=== PATIENT | male | born 1945 | race Caucasian/White ===

== ENCOUNTER 2020-12-24 11:04 | Day surgery (SDC) | payer MEDICARE, SELFPAY ==
[2018-09-26 10:07] VITALS: BMI 25.8
--- NOTE | 2020-12-04 10:31 | EKG12_ITS ---
Test Reason : PRE OP Blood Pressure : / mmHG Vent. Rate : 079 BPM Atrial Rate : 079 BPM P-R Int : 206 ms QRS Dur : 140 ms QT Int : 396 ms P-R-T Axes : 017 -39 033 degrees QTc Int : 454 ms Normal sinus rhythm Left axis deviation Right bundle branch block Abnormal ECG Confirmed by KRISTI ROSAS, PEDRITO ([id number]), newspaper managing editor JAGDISH SAHNI ([id number]) on 12/05/2020 12:24:29 PM Referred By: Loc Field Confirmed By:PEDRITO BERRY MD
[2020-12-04 12:18] LABS: Anion Gap 8 (5-15); BUN 12 mg/dL (7-18); BUN/Creat Ratio 12.8 RATIO (10-20); Chloride 107 mmol/L (98-107); Creatinine, Serum 0.93 mg/dL (0.70-1.30); EST Glomerular Filtration Rate 84 mL/min (>60); Est Glom Filt Rate - Afr Amer 102 mL/min (>60); Glucose 108 mg/dL (74-106); Potassium 3.5 mmol/L (3.5-5.1); Sodium Level 139 mmol/L (136-145)
[2020-12-24] VITALS (8 sets, daily range): BP systolic 138–169; BP diastolic 72–93; PULSE 74–85; RESP 14–16; TEMP 36.2–36.4; O2SAT 95–100; BMI 26.9
--- NOTE | 2020-12-24 | IMM_PTH ---
PATIENT: KORI ORTEGA LOC: [facility] [place] U#:[id number] AGE/SX: 75/M ROOM: RE12/24/[address]: Dr. Floyd Field MD : 1945 BED: DIS: 12/24/2020 SPEC #: [id number] RECD: 12/26/20 12:04 STATUS: ISAIAH REGabriel #: [id number] MARISELA: 12/24/20 00:[address]: Floyd Field DEPT: IMMUNOHISTOCHEMISTRY RECD BY: Tresa Monroy ENTERED: 12/26/20 12:07 SP TYPE: IMMUNO OTHR DR: Mina Ellis DO Tissues: Larynx, NOS Procedures: NAPSIN A (add) CD45 (add) CD56 (add) CK14 (add) CK20 (add) CK5-6 (add) CK7 (add) CK8 (add) KI-67 (add) P16 (add) TTF1 (add) Vimentin (add) Pankeratin (initial) P40 (add) S-100 (add) PHYSICIAN & [address] [address] SPECIMEN INFORMATION: Tissue Source: Laryngeal mass Clinical Info: Laryngeal mass Specimen Number: [id number] CPT code: 64297, 06570 x14 METHODOLOGY: Deparaffinized sections of prefer/formalin-fixed tissue or PAP/DQ stained slides are incubated with monoclonal/polyclonal antibodies/oligonucleotide probes. Localization is made via biotin free immunoperoxidase method. Appropriate controls are performed and reacted as expected. Results on target cell population are indicated in the following table: RESULTS: ANTIBODY / CLONE RESULT AE1-3 (AE1/AE3/PCK26) positive CK7 (OV-TL12/30) positive, focal, dim CK8 (02umdaO93) positive CK20 (KS20.8) negative CD45 (RP2/18) negative Vimentin (V9) negative S-100 (4C4.9) negative CD56 (123C3.D5) negative TTF-1 (8G7G3/1) negative Napsin A (Rabbit Polyclonal) negative CK5-6 (D5 & 1684) positive CK14 (LL002) positive P40 (BC28) positive P16 (E6H4) positive, block-like Ki-67 (30-9) positive, >95% These tests were developed and their performance characteristics determined by [facility]. They may not have been cleared or approved by the U.S. Food and Drug Administration. The FDA has determined that such clearance or approval is not necessary. The above immunohistochemical/dualISH markers are ordered and reviewed by the Pathologist. INTERPRETATION: Laryngeal mass, biopsy: Invasive squamous cell carcinoma. AM:shane 12/27/2020
[2020-12-24] MEDS: Lactated Ringers 1,000 ML 100 ML IV ×2 (11:15→14:00)
--- NOTE | 2020-12-24 12:50 | LARBX_PTH ---
PATIENT: KORI ORTEGA LOC: [facility] [place] U#:[id number] AGE/SX: 75/M ROOM: RE12/24/[address]: Dr. Floyd Field MD : 1945 BED: DIS: 12/24/2020 SPEC #: [id number] RECD: 12/24/20 14:27 STATUS: ISAIAH CLANCYGabriel #: [id number] MARISELA: 12/24/20 12:[address]: Floyd Field DEPT: SURGICAL PATHOLOGY RECD BY: Issac Noble ENTERED: 12/25/20 12:06 SP TYPE: LARYNX BX OTHR DR: Mnia Ellis DO Tissues: Laryngeal cavity Procedures: Surgery Specimen Level IV HEADER OPERATION: Diagnostic laryngoscopy with biopsy PRE-OP DIAGNOSIS: Laryngeal mass TISSUE SUBMITTED: Laryngeal mass MICROSCOPIC DIAGNOSIS Laryngeal mass, biopsy: Fragments of invasive squamous cell carcinoma. See comment. AM:shane 12/26/2020 COMMENT Immunohistochemistry ([id number]) supports the above diagnosis. Case has been reviewed in consultation with Dr. Zhao who concurs with the above diagnosis. IDC:MIRIAN MICROSCOPIC DESCRIPTION Slides are reviewed. GROSS DESCRIPTION Received in fixative is one container labeled with the patient's name and designated laryngeal mass. The specimen consists of multiple irregular fragments of light pollard soft tissue that in aggregate measure 1.5 x 0.8 x 0.3 cm. The specimen is totally submitted in one cassette. / MIRIAN:shane 12/25/20 TC:0 CPT: 33113
--- NOTE | 2020-12-24 13:50 | PCM.DC ---
Discharge Instructions Diet Discharge Diet: No restrictions Activity Discharge Activity: Return to Normal Activity Dressing / Incision Call your doctor if your incision/area has: Sudden Increased Bleeding Follow Up Care Please Follow Up With: Loc Field MD When: 1 week Test Results: Test results from this visit will be discussed in further detail at your follow-up appointment, if applicable. Discharge Plan Admission Attending Provider: Loc Field Primary Care Provider: Mina Ellis Discharge Orders/Prescriptions Prescriptions: No Action sulfasalazine 500 mg tablet 1,000 mg PO DAILY RF: 0 pantoprazole 20 mg tablet,delayed release (DR/EC) 40 mg PO DAILY RF: 0 aspirin 81 mg tablet,delayed release (DR/EC) 162 mg PO DAILY RF: 0 multivitamin capsule capsule 1 cap PO DAILY RF: 0 garlic 1,000 mg Capsule 1,000 mg PO DAILY RF: 0 cholecalciferol (vitamin D3) [Vitamin D3] 50 mcg (2,000 unit) Capsule 50 mcg PO DAILY RF: 0 niacin 500 mg Capsule 500 mg PO DAILY RF: 0 Disposition Discharge Orders: Discharge Patient (Routine); Ordered 12/24/20 Ordered By: Dr. Loc Field
--- NOTE | 2020-12-24 13:51 | PCM.OPRPT ---
Problems Associated Problem List Diagnoses (1) Laryngeal mass: Report of Operation Date of Procedure: 12/24/20 Pre-Operative Diagnosis: laryngeal mass Post-Operative Diagnosis: laryngeal mass Surgery/Procedure Performed:: diagnostic laryngoscopy with biopsy and use of operative telescope Type of Anesthesia: General Description of Procedure: on the day of the procedure, after appropriate informed consent was obtained, the patient was brought to the operating room and placed in supine position on the operating table. he was placed under general endotracheal anesthesia by the anesthesiologist. the endotracheal tube was secured, the eyes were taped. the table was rotated 90 degrees toward the anesthesiologist. a tommy laryngoscope was inserted with care not to damage the lips, teeth or gums. it was suspended from the corado stand. a zero degree telescope was inserted into the oral cavity and the larynx was viewed. he had a mass involving the right anterior vocal cord, anterior commissure, right supraglottis (notably right false cord) and right subglottis. the laryngeal surface of the epiglottis and right arytenoid were spared. he had no issues with laryngeal mobility bilaterally in the office. multiple biopsies were taken with a cupped biting forceps. hemostasis was achieved with afrin-soaked pledgets. he was awoken from anesthesia and transferred to the PACU in stable condition.
== END 2020-12-24 15:42 | disposition home or self-care (01) ==
LOC: SDC 11:05 → AC 11:06
PROVIDERS: PCP Preventive Medicine Occupational Medicine; Referring Provider Otolaryngology; Visit Provider Otolaryngology
PROC: 0CJS8ZZ Inspection of Larynx, Via Natural or Artificial Opening Endoscopic (ICD-10-PCS; CPT 31575; principal; 2020-12-24 12:45)
DX: C32.8 Malignant neoplasm of overlapping sites of larynx (principal); F17.210 Nicotine dependence, cigarettes, uncomplicated; K21.9 Gastro-esophageal reflux disease without esophagitis; Z79.899 Other long term (current) drug therapy
CPT/HCPCS: 31536; 36415; 80048; 88305; 88341; 88342; 93005; J7120

== ENCOUNTER → 2021-01-14 15:16 | Outpatient (CLI) | payer MEDICARE, SELFPAY ==
[2020-12-24 11:49] VITALS: BMI 26.9
--- NOTE | 2021-01-14 15:00 | PET_ITS ---
EXAMINATION: FDG PET-CT INDICATIONS: A 75-year-old male with apparent history of head and neck carcinoma presenting for initial staging examination. COMPARISON EXAMINATION: None available. INDEX LESION SIZE SUV INTERPRETATION Anterior neck, larynx 19.2 mm (frame 241) 8.3 Fulfills quantitative criteria for viable neoplasm. TECHNIQUE: Following the intravenous administration of 14.27 mCi of F-18 deoxyglucose via the left antecubital fossa, multiplanar image acquisitions of the head, neck, chest, abdomen and pelvis to level of mid-thigh, lower extremities obtained at one hour post radiopharmaceutical administration contemporaneously interpreted with the current CT of the head, neck, chest, abdomen and pelvis to level of mid-thigh, lower extremities dated 01/14/21 via coregistration and reveal: SERUM GLUCOSE LEVEL: 94 mg/dl. HEIGHT: 70 inches. WEIGHT: 185 lbs. FINDINGS: 1. Focal increased FDG concentration is observed in the anterior neck-laryngeal structures which appears to extend from the anterior commissure to the true-false vocal cord vestibular fold to the right of the midline. There is corresponding soft tissue thickening noted in the analogous location. The calculated maximum standard uptake value is 8.3. The maximum axial diameter of the corresponding metabolic, morphologic abnormality on review of CT of the neck dated 01/14/21 is 19.2 mm (AP). 2. Normal physiologic distribution of the radiopharmaceutical is apparent in the hepatic (3.0) and splenic parenchyma, both renal units, bladder and visualized intestinal tract. The visualized portion of the cerebral cortex demonstrate symmetric and preserved glucose metabolism. Diffuse intestinal tract activity is noted throughout all four quadrants of the abdominal-pelvic retroperitoneum and mesentery consistent with normal physiologic distribution of the radiopharmaceutical. Pertinent CT findings are as follows. CHEST: There is atherosclerotic calcification defined in the thoracic aorta without evidence of dilatation-aneurysm formation. Coronary arterial calcification is observed. Bilateral axillary soft tissue densities with fatty hilus are ametabolic. There are no parenchymal densities-nodules defined in the right and left hemithorax with discernable increased FDG concentration. Mediastinal soft tissue with expressed fatty hilus is ametabolic. ABDOMEN AND PELVIS: Atherosclerotic calcification is defined in the abdominal aorta without evidence of dilatation, aneurysm formation. Pelvic arterial calcification is demonstrated. Dystrophic calcification is manifest within the right peripheral zone prostate gland without evidence of increased tracer uptake. Right and left inguinal soft tissue densities with fatty hilus are nonglucose avid. SKELETAL: Degenerative changes defined in the cervical, thoracic and lumbar spine demonstrate no evidence of glucose hypermetabolism. There are no sclerotic, mixed sclerotic-lytic and/or primarily lytic changes noted in the visualized skeletal structures demonstrating quantitative significant increased FDG uptake. PET/PET/CT Tumor Base -Thigh Init IMPRESSION: 1. ABNORMAL EXAMINATION INDICATIVE OF MALIGNANT-METASTATIC VIABLE NEOPLASM. 2. Increased FDG concentration observed in the anterior neck-laryngeal structures fulfills quantitative criteria for viable neoplasm. 3. No other quantitative significant hypermetabolic abnormalities are noted. There is no definitive scintigraphic evidence of distant metastatic disease. Electronic Signature Elio Zamora D.O. Accurate Quantification of SUVs for this report are calculated using the exclusive [employer]. (U.S. Patent No. [id number] [phone]). Standardization and correction of the FDG SUV metric via [employer] technology allow for vendor non-specific objective quantitative examination comparison and optimization of the sensitivity and specificity of the FDG PET-CT examination. Electronically Signed: Elio Zamora DO at 23:17 EDT Tel , Service support ,
== END ==
PROVIDERS: PCP Preventive Medicine Occupational Medicine; Referring Provider Otolaryngology; Visit Provider Otolaryngology
DX: C32.0 Malignant neoplasm of glottis (principal)
CPT/HCPCS: 78815; A9552

== ENCOUNTER → 2021-01-22 14:48 | Outpatient (CLI) | payer MEDICARE, SELFPAY ==
[2020-12-24 11:49] VITALS: BMI 26.9
[2021-01-21 15:50] VITALS: BMI 27.6
--- NOTE | 2021-01-22 14:51 | CT_ITS ---
STUDY: CT SOFT TISSUE NECK WITH CONTRAST REASON FOR EXAM: Male, 75 years old. Eval extent of disease for laryngeal cancer RADIATION DOSAGE (If Supplied By Facility): CTDIvol = ( 18.34 ) mGy, DLP = ( 513.13 ) mGycm TECHNIQUE: The patient was scanned in a multi-detector CT scanner. High resolution transaxial imaging was performed following intravenous administration of IV 75mL Isovue-300. Sagittal and coronal images were reconstructed. Individualized dose optimization techniques were used for this CT. COMPARISON: None. FINDINGS: Normal bilateral parotid glands. Normal bilateral installer spaces. Normal bilateral parapharyngeal spaces. Normal bilateral carotid spaces. Normal bilateral sublingual and submandibular glands and spaces. Normal visualized nasopharynx. Normal retropharyngeal space. Normal perivertebral space. Normal visualized bilateral faucial tonsils. The visualized tongue, tongue base and oropharynx are normal. The visualized cervical lymph nodes (levels I-) are within normal size limits, and maintain normal morphology. There is no demonstrated solid or cystic mass lesion. There is no abnormal contrast enhancement. Normal epiglottis, bilateral vallecula and hypopharynx. The pre-epiglottic and paraglottic adipose spaces are normal. There is asymmetric thickening of the right vocal cord which may represent the patient''s known laryngeal carcinoma. This measures approximately 1 x 2 cm. Normal subglottic trachea. Normal bilateral lobes of the thyroid gland. Normal visualized pulmonary apices. Normal visualized paranasal sinuses. Normal visualized cervical spine. CT/Soft Tissue Neck WITH Contrast IMPRESSION: Asymmetric thickening of the right vocal cord which may represent the patient''s known laryngeal carcinoma. Clinical correlation is recommended. Electronically Signed: Elio Holcomb MD at 15:34 EDT Tel , Service support ,
== END ==
PROVIDERS: PCP Preventive Medicine Occupational Medicine; Referring Provider Student in an Organized Health Care Education/Training Program; Visit Provider Student in an Organized Health Care Education/Training Program
DX: C32.9 Malignant neoplasm of larynx, unspecified (principal)
CPT/HCPCS: 70491; Q9967

== ENCOUNTER 2021-02-04 10:21 | Day surgery (SDC) | payer MEDICARE, SELFPAY ==
[2021-01-24 10:10] VITALS: BMI 27.6
[2021-02-04] VITALS (7 sets, daily range): BP systolic 112–155; BP diastolic 61–90; PULSE 73–87; RESP 16–18; TEMP 36.2–36.3; O2SAT 96–98; BMI 26.4
--- NOTE | 2021-02-04 10:31 | HP.PCM_ITS ---
History and Physical Date of Admission: 02/04/21 Date of Service: 01/24/21 MR#:[id number]: KORI ORTEGARep #:[id number]:1945 Provider:Jorge L Sebastian/Sex: 75/M [facility] Vital Signs 01/24/21 10:03 01/24/21 10:10 Height 5 ft 10 in Weight: 192 lb BMI 27.5 27.6 BP 149/81 H Blood Pressure Location Rt brachial Position Sitting Respiration 18 Intake Visit Reasons: Port & Peg tube/squamus cell carcinoma larynx Chief Complaint: discuss port/peg Anesthetic Assistant Required: No Is patient in pain?: No Allergies No Known Allergies Allergy (Verified 01/24/21 10:09) Medications aspirin 81 mg tablet,delayed release 162 mg PO DAILY 09/26/18 [History Confirmed 01/24/21] multivitamin 1 cap PO DAILY 09/26/18 [History Confirmed 01/24/21] pantoprazole 20 mg tablet,delayed release 40 mg PO DAILY 09/26/18 [History Confirmed 01/24/21] sulfasalazine 500 mg tablet 1,000 mg PO DAILY 09/26/18 [History Confirmed 01/24/21] garlic 1,000 mg PO DAILY 12/18/20 [History Confirmed 01/24/21] niacin 500 mg PO DAILY 12/18/20 [History Confirmed 01/24/21] cholecalciferol (vitamin D3) 25 mcg (1,000 unit) capsule 25 mcg PO DAILY 01/20/21 [History Confirmed 01/24/21] [facility] Medical History Back pain Crohn disease Gastric reflux Hemorrhoids History of Crohn's disease History of pain when walking History of stress test Hoarseness Knee pain Neck pain Smoker Wears dentures Wears glasses Wears hearing aid Surgical History History of bowel diversion surgery History of right knee surgery Hx of colonoscopy Hx of local excision of skin lesion Hx of tonsillectomy Family History Father Myocardial infarction Mother Heart disease Social History Smoking Status: Former smoker quit date: 12/30/20 pack-years: 45 Tobacco: How many years used: 45 Electronic Cigarette Use: not used how long ago did patient quit smokin weeks ago second hand exposure: Yes quit status: quit date established alcohol intake: never HPI HPI HPI: KORI ORTEGA, is a 75 M who presents to the office today for placement of PEG and 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 Discussed with Dr. Chaudhry and Dr. Alarcon sounds like patient does clinically have an indeterminate or T3 lesion thus will be planning chemo and radiation. Patient has a history of Crohn's disease and had previous abdominal surgery in 1989 along with multiple drains for right lower quadrant abscess. ROS General General: No weight change, appetite, fatigue, colon cancer, breast cancer or weakness HEENT HEENT: No difficulty swallowing, eye injury, eye surgery, swollen glands or hoarseness Endo Endocrine: No thyroid disease, diabetes mellitus, thyroid cancer, Hair loss, heat intolerance or cold intolerance Skin Skin: No rash or changing moles Breast Breast: No left breast lump, right breast lump, nipple discharge, breast pain, abnormal mammogram, abnormal US or breast enlargement Musc Musculoskeletal: Yes back problems; No arthritis, rheumatoid arthritis, gout or joint pain Cardio Cardiovascular: No murmur, pacemaker, heart disease, atrial fibrillation, high blood pressure, heart attack, heart stent, palpitations, shortness of breat with exertion or chest pain Psych Psychiatric: No depression, anxiety or hearing voices Resp Respiratory: No shortness of breath, No sleep apnea, No cough, No COPD, No asthma, No emphysema and No wheezing Gastro Gastrointestinal: Yes abdominal pain, No nausea or vomiting, Yes diarrhea, No constipation, No blood in stool, Yes acid reflux, Yes hemorrhoids, No ulcers, No gallbladder problem and No black,tarry stools [place] Hematologic: No blood thinners, No blood disorders, No bleeding, No anemia and No blood clots Neuro Neurologic: No system reviewed and no additional complaints, except as documented, No as per HPI, No abnormal gait, No abnormal hearing, No abnormal movements, No abnormal speech, No behavioral changes, No burning sensations, No confusion, No convulsions, No disequilibrium, No dizziness, No localized weakness, No frequent falls, No headache(s), No lack of coordination, No loss of vision, No memory loss, No numbness, No other visual disturbances, No radicular pain, No restless legs, No sensory deficit, No syncope, No tingling, No tremor(s), No weakness and No other Exam Const General: cooperative, healthy appearing, comfortable and no acute distress Neck Neck: normal visual inspection and supple Chest Other: Normal palpation of bilateral upper chest. Resp Effort & Inspection: normal respiratory effort Cardio Rate: regular rate GI Inspection: non-distended Palpation: soft, no guarding and nontender Other: Well-healed midline incision, multiple small scars from drain placement Skin General: no rashes or lesions noted Neuro General: patient oriented x3 Psych Affect: normal affect COVID (Procedure Consent) Procedure Criteria Procedure Criteria: Yes Elective The surgeon/proceduralist and patient have discussed in detail the risk of exposure to and/or potential harm posed by the COVID-19 virus with having a surgery/procedure at this time versus the risk of delaying the surgery/procedure. It is not possible to know either the risk of delaying the surgery or procedure or chance of getting an infection with perfect accuracy, but a joint decision was made between the patient and the surgeon/proceduralist to proceed at this time with the scheduled surgery/procedure as indicated on the consent form. Assessment and Plan Assessment and Plan (1) Encounter for insertion of venous access port: Status: Acute (2) Squamous cell carcinoma of larynx: Status: Acute (3) History of Crohn's disease: Status: Acute Plan - Dr. Rhianna Maya MD: We will plan to place the port/PEG on 02/03 as I will be on vacation next week. If patient does need the port prior to this we may be able to check with one of my partners for placement of both sooner--d/w Dr. Alarcon. I have discussed above with the patient- Port-a-Cath placement. Right possible left Patient has been counseled as to the risks/benefits of the procedure. I have explained the risks of the surgery, including but not limited to: infection, bleeding, injury to any blood vessels/nerves, injury to lungs (such as pneumothorax or hemothorax and need for chest tube), not having any access, nonfunctioning of port due to thrombosis, infection of port, etc. the patient understands and agrees to proceed. I have answered all the patient's questions to the patient?s satisfaction and the patient has no further questions. I have discussed the above with the patient. I have offered the patient EGD with PEG placement--did discuss with patient that if I do not see a good 1-1 illumination of light from the endoscope due to his previous surgeries/drains may not be able to place the PEG endoscopically I have explained the risks/benefits of the procedure and described the procedure. I have discussed the risks with the patient, including but not limited to: infection, bleeding, perforation of the GI tract requiring emergency surgery, inability to complete the procedure, injury to any internal organs, complications of anesthesia, etc. - the patient understands and agrees to proceed. I have answered all the patient's questions to the patient's satisfaction and the patient has no further questions. Rhianna Maya M.D. Pager: [phone] [facility] [address] [place] [address], [address] [place] [address] Office: [phone] . Coding Level of Care Code Off vis,new,level 3 Diagnoses Encounter for insertion of venous access port Z45.2 Squamous cell carcinoma of larynx C32.9 History of Crohn's disease Z87.19 01/24/21 1105<Electronically signed by Rhianna Maya MD>Date Rhianna Maya MD
[2021-02-04] MEDS: Lactated Ringers 1,000 ML 100 ML IV (10:57)
--- NOTE | 2021-02-04 11:18 | SUR.PREOP ---
PEG TUBE TEACHING DONE
--- NOTE | 2021-02-04 12:05 | EX.NTREPO ---
Medical Nutrition Therapy - History Nutrition Services has been consulted to:: Manage nutrient details of diet order, Conduct nutrition education Current diet/nutrition support order:: Oral intake currently, anticipate 100% nutrition by enteral feeding as treatment progresses - Anthropometric Measurements Height:: 5 ft 10.5 in Weight:: 84.8 kg Body Mass Index (BMI):: 26.4 - Assessment Food and Nutrient Intake: Currently Regular diet without issues noted. - Nutrition Diagnosis: Intake Problem Inadequate Oral Intake Intake Problem - Etiology: anticipated and related to radiation and chemotherapy treatment Intake Problem - Signs/Symptoms: anticipated weight loss, mucositis, and dysgeusia Status: Active Problem - Nutrition Diagnosis: Clinical Problem Altered GI Function Clinical Problem - Etiology: history of Crohn's disease Clinical Problem - Signs/Symptoms: reports of diarrhea, chronic loose stools and heartburn Status: Active Problem - Protein Calorie Malnutrition Evidence of Malnutrition Exists: No - Nutrition Intervention Nutrition Prescription: 2000 - 2500 Calories, 90-130 gm Protein and 2600 mL fluids / day - Food / Nutrient Delivery Interventions Summary of nutrition intervention:: Nutrition education provided, Provide oral nutrition supplement Nutrition support ordered as / adjusted to:: Oral diet while tolerated with 2 - 8oz bottles of high protein, high calorie oral nutrition per day. Proceeding to enteral nutrition when oral diet is no longer tolerated Nutrition education provided?: Yes - [facility] Enteral Nutrition Resource Nutrition Counseling: Provided Nutrition Services contact informtion Coordination of Nutrition Care: Patient is currently following with Speech Therapy - MNT Monitoring Active Nutrition Patient: Yes Nutrition Status: Requires Follow Up 7-9 Days
[2021-02-04] MEDS: Cefazolin 2 GM in 0.9% Normal Saline 100 ML IV (12:28)
[2021-02-04] MEDS: Bupivacaine Mpf 0.5% 30 ML VIAL (12:50)
[2021-02-04] MEDS: Lidocaine 1% /Epi 1:100 (20ml) 20 ML Vial (12:50)
--- NOTE | 2021-02-04 13:20 | OP.PCM_ITS ---
Report of Operation Date of Procedure: 02/04/21 Pre-Operative Diagnosis: Squamous cell carcinoma of the larynx, Z45.2 Post-Operative Diagnosis: Same Surgery/Procedure Performed:: 1. Placement of right IJ Port-A-Cath 2. Use of fluoroscopy 3. Use of ultrasound Surgeon: Rhianna Maya Type of Anesthesia: MAC/Supplemental Anesthesiologist: Josemanuel Butterfield Special Medications: Ancef 2 g IV x1 Specimen's removed: None Estimated Blood Loss (mL): < 10 cc Description of Procedure: After informed consent was given, the patient was brought to the operating room and placed in the supine position. Appropriate time out protocol was followed. Patient was then given IV conscious sedation for anesthesia. The patient's right upper chest and neck were then prepped with a surgical skin preparation and sterile surgical drapes were placed. After proper landmarks were ascertained, the skin at the upper right chest area was then infiltrated with 1:1 mixture of 1% lidocaine with epinephrine and 0.5% marcaine. A needle trocar was then inserted into the right internal jugular vein with ultrasound guidance-multiple vessels were viewed with u/s and the right IJ was chosen-- and there was good aspiration of venous blood. A wire was then threaded into the needle trocar and this was visualized under fluoroscopy to ensure that the wire was in the superior vena cava. Once this was done, then the needle trocar was removed. A small skin shayla was made with an 11 blade knife at the wire entrance site. The dilator with the introducer sheath attached was then placed over the wire into the right internal jugular vein via the Seldinger technique and this was visualized under fluoroscopy. The dilator and sheath were in proper position as visualized by fluoroscopy. A subcutaneous pocket was then created caudad to the catheter insertion site. A transverse skin incision was made after the skin and subcutaneous tissues were infiltrated with local anesthetic. Blunt dissection was then used to create a space large enough for placement of the subcutaneous port. The catheter was then tunneled into the subcutaneous pocket. The wire and dilator were then removed. The catheter was then threaded into the introducer sheath and was positioned with its tip at the junction of the superior vena cava and the right atrium as visualized under fluoroscopy. The excess catheter was transected. The catheter was then attached to the subcutaneous port using manufacturers guidelines. The catheter was flushed with a heparin saline mixture prior to placement. Hemostasis was carefully controlled with electrocautery. The port was sutured to the subcutaneous fascia using 2-0 Vicryl suture at two sites. The port was then placed in the subcutaneous pocket. The incision were reapproximated with interrupted subdermal 3-0 vicryl sutures. The skin was reapproximated with 3-0 nylon suture in a interrupted fashion. Steristrips were used for reinforcement of the skin closure at IJ insertion site and the port was accessed. Ports on the access catheter were flushed with sali ne and heparin. A sterile opsite dressing was applied. The patient tolerated the procedure well. Implants Used: Bard PowerPort isp M.R.I. 6Fr Lot [id number] ref [id number] Grafts/Implants Used: Bard PowerPort isp M.R.I. 6Fr Lot [id number] ref [id number] Complications none
--- NOTE | 2021-02-04 13:23 | EX.PCM.DISCH ---
Discharge Instructions Procedure Port-A-Cath Diet Discharge Diet: Light diet - advance as tolerated Activity May shower in (days): 5 (Keep port site clean and dry x5 days. Neck incision okay to get wet after 1 day. Okay to lower shower and upper sponge bath. OR okay to taper off port site with a Ziploc bag to shower) Lifting Restrictions: No lifting > 15 pounds for 3 days with the arm on the side of the port Additional Activity Instructions:: Do not shower if port is accessed. Flush PEG site daily and clean skin around site okay to shower with PEG tube. Dressing / Incision Call your doctor if your incision/area has: Continuous Slow Oozing, Sudden Increased Bleeding, Increased Pain/ Swelling, Increased Redness, Foul Smelling Discharge and Swelling at the incision site Call your doctor if you observe: Fever of 101 or Higher Change Dressing in: 2 days Follow Up Care Please Follow Up With: Rhianna Maya MD When: In 10 days for permanent suture removal?call office for appointment Test Results: Test results from this visit will be discussed in further detail at your follow-up appointment, if applicable. Discharge Plan Admission Attending Provider: Rhianna Maya Primary Care Provider: Mina Ellis Discharge Orders/Prescriptions Prescriptions: New oxycodone-acetaminophen [Endocet] 5-325 mg tablet 1 tab PO Q6H PRN (Reason: pain) 3 Days Qty: 5 RF: 0 Continued sulfasalazine 500 mg tablet 1,000 mg PO DAILY RF: 0 pantoprazole 20 mg tablet,delayed release (DR/EC) 40 mg PO DAILY RF: 0 multivitamin capsule capsule 1 cap PO DAILY RF: 0 cholecalciferol (vitamin D3) 25 mcg (1,000 unit) capsule 25 mcg PO DAILY RF: 0 garlic 1,000 mg Capsule 1,000 mg PO DAILY RF: 0 niacin 500 mg Capsule 500 mg PO DAILY RF: 0 Held aspirin 81 mg tablet,delayed release (DR/EC) 162 mg PO DAILY RF: 0 Hold Instructions: Resume on 02/06/21. Referrals / Follow Up: Mina Ellis DO [Primary Care Provider] - Disposition Disposition (needs filled in before D/C Order can be placed): Home, Self Care
--- NOTE | 2021-02-04 13:29 | OP.EGD_ITS ---
Patient Name: Raman Garcia Procedure Date: 02/04/2021 12:08 PM Date of : 1945 Age: 75 Procedure: Upper GI endoscopy Indications: Malnutrition, Laryngeal cancer Providers: Rhianna Maya MD Medicines: Monitored Anesthesia Care Patient Profile: This is a 75 year old male. Complications: No immediate complications. Procedure: Pre-Anesthesia Assessment: - Prior to the procedure, a History and Physical was performed, and patient medications and allergies were reviewed. The patient's tolerance of previous anesthesia was also reviewed. The risks and benefits of the procedure and the sedation options and risks were discussed with the patient. All questions were answered, and informed consent was obtained. Prior Anticoagulants: The patient has taken aspirin, last dose was 5 days prior to procedure. ASA Grade Assessment: Per anesthesia. After reviewing the risks and benefits, the patient was deemed in satisfactory condition to undergo the procedure. After obtaining informed consent, the endoscope was passed under direct vision. Throughout the procedure, the patient's blood pressure, pulse, and oxygen saturations were monitored continuously. The gastroscope was introduced through the mouth, and advanced to the second part of duodenum. The upper GI endoscopy was accomplished without difficulty. The patient tolerated the procedure well. Scope In: 1:05:59 PM Scope Out: 1:20:34 PM Total Procedure Duration Time 0 hours 14 minutes 35 seconds Findings: The Z-line was variable and was found 40 cm from the incisors. The examined duodenum was normal. The patient was placed in the supine position for PEG placement. The stomach was insufflated to appose gastric and abdominal woodall. A site was located in the body of the stomach with excellent transillumination for placement. The abdominal wall was marked and prepped in a sterile manner. The area was anesthetized with 4 mL of 0.5% lidocaine. The trocar needle was introduced through the abdominal wall and into the stomach under direct endoscopic view. A snare was introduced through the endoscope and opened in the gastric lumen. The guide wire was passed through the trocar and into the open snare. The snare was closed around the guide wire. The endoscope and snare were removed, pulling the wire out through the mouth. A skin incision was made at the site of needle insertion. The externally removable 20 Fr Bard gastrostomy tube was lubricated. The G-tube was tied to the guide wire and pulled through the mouth and into the stomach. The trocar needle was removed, and the gastrostomy tube was pulled out from the stomach through the skin. The external bumper was attached to the gastrostomy tube, and the tube was cut to remove the guide wire. The final position of the gastrostomy tube was confirmed by relook endoscopy, and skin marking noted to be 4 cm at the external bumper. The final tension and compression of the abdominal wall by the PEG tube and external bumper were checked and revealed that the bumper was loose and lightly touching the skin. The feeding tube was capped, and the tube site cleaned and dressed. Impression: - Z-line variable, 40 cm from the incisors. - Normal examined duodenum. - An externally removable PEG placement was successfully completed. - No specimens collected. Recommendation: - Discharge patient to home. - Resume previous diet. - Continue present medications. Procedure Code(s): --- Professional --- 12497, Esophagogastroduodenoscopy, flexible, transoral; with directed placement of percutaneous gastrostomy tube Diagnosis Code(s): --- Professional --- K22.8, Other specified diseases of esophagus E46, Unspecified protein-calorie malnutrition CPT copyright 2017 [employer]. All rights reserved. The codes documented in this report are preliminary and upon cement or concrete finishing supervisor review may be revised to meet current compliance requirements. MD Rhianna Pat MD 02/04/2021 1:29:07 PM This report has been signed electronically. Number of Addenda: 0 Note Initiated On: 02/04/2021 12:08 PM
--- NOTE | 2021-02-04 13:30 | OP.CCLET_ITS ---
02/04/2021 Mina Ellis Do Re : Upper GI endoscopy procedure for Raman Garcia Dear Rhonda This procedure was performed on Thursday, February 04, 2021. My impressions and recommendations are as follows: Impressions : - Z-line variable, 40 cm from the incisors. - Normal examined duodenum. - An externally removable PEG placement was successfully completed. - No specimens collected. Recommendations : - Discharge patient to home. - Resume previous diet. - Continue present medications. My findings are described in the full procedure note, which is enclosed. If I can be of further assistance, please feel free to contact me at Doctor phone number(s): , Work: . Sincerely, MD Rhianna Pat MD 02/04/2021 1:29:07 PM This report has been signed electronically.
--- NOTE | 2021-02-04 13:40 | RAD_ITS ---
STUDY: X-RAY CHEST REASON FOR EXAM: Male, 75 years old. Port -- pacu TECHNIQUE: Single AP portable view of the chest. COMPARISON: None. FINDINGS: A right-sided portacatheter has been placed with the tip at the junction of the superior vena cava and right atrium. Hyperinflation. The lungs are clear. There is no demonstrated pleural abnormality. Normal size heart. Normal mediastinum and calixto. Normal visualized pulmonary arteries. Normal visualized aortic arch and descending thoracic aorta. There are diffuse degenerative changes of the visualized thoracic spine. Normal visualized ribs, clavicles, and shoulders. There is no demonstrated abnormality of the visualized soft tissue structures of the upper abdomen. RAD/CXR for Line Placement IMPRESSION: Hyperinflation. The lungs are clear. Electronically Signed: Cyrus Pretty MD at 14:10 EDT , Service support ,
== END 2021-02-04 14:39 | disposition home or self-care (01) ==
LOC: SDC 10:24 → AC 10:24
PROVIDERS: PCP Preventive Medicine Occupational Medicine; Referring Provider Surgery; Visit Provider Surgery
PROC: (CPT 36561; principal; 2021-02-04 11:45)
PROC: 0DJ08ZZ Inspection of Upper Intestinal Tract, Via Natural or Artificial Opening Endoscopic (ICD-10-PCS; CPT 43235; principal; 2021-02-04 11:55)
DX: Z45.2 Encounter for adjustment and management of vascular access device (principal); C32.9 Malignant neoplasm of larynx, unspecified; K22.8 Other specified diseases of esophagus; E46 Unspecified protein-calorie malnutrition; K50.90 Crohn's disease, unspecified, without complications; M19.90 Unspecified osteoarthritis, unspecified site; K21.9 Gastro-esophageal reflux disease without esophagitis; Z79.82 Long term (current) use of aspirin; Z79.899 Other long term (current) drug therapy; Z87.891 Personal history of nicotine dependence
CPT/HCPCS: 36561; 43246; 71045; 77001; J7120; J2405

== ENCOUNTER → 2021-02-18 11:51 | Outpatient (CLI) | payer MEDICARE, SELFPAY ==
--- NOTE | 2021-02-18 12:30 | ST.MBS ---
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 Past Medical History: Back pain; Crohn disease; Gastric reflux; Hemorrhoids; History of Crohn's disease; History of pain when walking; History of stress test; Hoarseness; Knee pain; Neck pain; Smoker; Wears dentures; Wears glasses; Wears hearing aid. Past Surgical History: History of bowel diversion surgery; History of right knee surgery; Hx of colonoscopy; Hx of local excision of skin lesion; Hx of tonsillectomy. Mental Status: WNL Comment: MOAPA, require repetition and reinforcement of education and instructions provided Respiratory Status: Oxygenating on Room Air - Penetration-Aspiration Scale Penetration-Aspiration Scale: OBJECTIVE ASSESSMENT OF SWALLOW FUNCTION (QUANTITATIVE ? PER TRIAL): PENETRATION / ASPIRATION SCALE (ZAMORA): 1 = does not enter airway 2 = enters airway/above vocal folds/ejected 3 = enters airway/above vocal folds/not ejected 4 = enters airway/contacts vocal folds/ejected 5 = enters airway/contacts vocal folds/not ejected 6 = enters airway/below vocal folds/ejected 7 = enters airway/below vocal folds/not ejected despite effort 8 = enters airway/below vocal folds/no effort VIDEOFLOROSCOPIC SCALE SCORE (ZAMORA): Grade I = aspiration of material that has penetrated into the laryngeal vestibule, intact cough reflex Grade II = aspiration < 10 % of the bolus, intact cough reflex Grade III = aspiration of < 10 % of the bolus, reduced cough reflex or aspiration of > 10 % of the bolus, intact cough reflex Grade IV = aspiration of > 10 % of the bolus, reduced cough reflex - Penetration-Aspiration Scale Score Thin Liquid via teaspoon Result: 1= does not enter airway Thin Liquid via teaspoon Trial 2 Result: 1= does not enter airway Thin Liquid via small single sip from cup Result: 1= does not enter airway Thin Liquid via sequential sips from cup Result: 7= enters airways/below vocal folds/not ejected despite effort Comment: Grade III = aspiration of < 10 % of the bolus, reduced cough reflex Thin Liquid via small single sip from cup Trial 2 Result: 1= does not enter airway Thin Liquid via single sip from straw Result: 1= does not enter airway [place] Thick Liquid via small single sip from cup Result: 1= does not enter airway Honey Thick Liquid via small single sip from cup Result: 1= does not enter airway Pudding Result: 1= does not enter airway Pudding + esophageal clearance screening Result: 1= does not enter airway Cookie Result: 1= does not enter airway Thin Liquid via small single sip from cup Trial 3 Result: 1= does not enter airway - Oral Phase Labial Seal: No Labial Escape Tongue Control During Bolus Hold: Cohesive bolus between tongue to palatal seal Bolus Preparation/Mastication: Slow prolonged chewing/mashing with complete recollection Bolus Transport/Lingual Motion: Repetitive/disorganized tongue motion Oral Residue: Residue collection on oral structures - Pharyngeal Phase Initiation of Pharyngeal Swallow: Bolus head at posterior angle of ramus at first hyoid excursion Soft Palate Elevation: No bolus between soft palate and pharyngeal wall Laryngeal Elevation: Partial superior movement thyroid cart/partial apprx aryt-epig petiole Anterior Hyoid Excursion: Partial anterior movement Epiglottic Movement: Complete inversion Laryngeal Vestibule Closure at Height of Swallow: Complete; no air/contrast in laryngeal vestibule Pharyngeal Stripping Wave: Present - diminished Pharyngoesophageal Segment Opening: Complete distension and complete duration; no obstruction of flow Tongue Base Retraction: Narrow column of contrast between tongue base & post. pharyngeal wall Pharyngeal Residue: Collection of residue within or on pharyngeal structures - Esophageal Phase Esophageal Clearance: Esophageal retention - Treatment Strategies Effects of treatment strategies attemped:: reduction in liquid bolus volume = effective to reduce penetration/aspiration risk double swallow = effective to clear oral/pharyngeal residue and reduce risk of post prandial penetration/subsequent risk of aspiration of pyriform stasis - Diagnosis/Impression Diagnosis: mild oropharyngeal dysphagia Impression: Swallow function is marked by: prolonged and disorganized mastication and A-P bolus transportation loss of oral bolus control w/ recollection required multiple repetitive lingual sweeps to clear solid texture bolus from the oral cavity adequate prandial laryngeal vestibule closure , no prandial penetration residue retention of the oral tongue and pharyngeal tongue evident post deglutition, requiring 1-2 additional swallows to clear pyriform residue retention resulted in post-prandial spilling of thin liquid from pyriforms into the laryngeal vestibule w/ subsequent aspiration entering along the posterior tracheal wall 1x following sequential intake of thin liquid via cup patient demonstrated weak cough response to penetration/aspiration which was not effective to expel aspirate from the trachea decreased base of tongue retraction w/ resultant residue retention inconsistent pharyngeal contraction w/ diminished stripping wave resulting in a collection of contrast lining the valleculae, aryepiglottic folds and pyriform sinuses post deglutition liquid wash/effortful double swallow were effective to partially clear residue esophageal retention visible during screening of esophageal clearance - Recommendations Diet: Regular Textures, Thin Liquids Compensatory Strategies: Small Bites, Small Sips, Slow Rate, Multiple Swallows - at reasonable intervals as needed to clear pharyngeal residue, Alternate bites/solids and sips/liquids, Sitting upright, Remain sitting upright for 30 minutes after PO intake Recommend Repeat Modified Barium Swallow: Yes - 1-3 months after radiation completed Need for Skilled Speech Therapy Services: Yes Comment: Skilled dysphagia intervention is recommended 1x/week throughout duration of laryngeal cancer treatment to address oropharyngeal dysphagia w/ continuation of the proactive swallow exercise program and ongoing education re: acute and post treatment dysphagia secondary to laryngeal cancer treatment w/ radiation/chemotherapy. Education Completed: 1. Described result of evaluation., 2. Pt understands evaluation & agrees with goals and treatment plan., 4. Family/caregivers understand evaluation & agree w/ goals & tx plan. Comment: Images were reviewed w/ the patient and his , Yamilet, following [facility] [place]. Extended time spent providing education re: anatomy/physiology of swallow function, deficits identified, and plan of care for ongoing dysphagia intervention during treatment of laryngeal cancer w/ radiation and chemo therapies. Education was well received. - Status Active ST Patient: Active - Contact Information [facility]:: Dalila Campbell M.A., [facility] [employer] [facility] [address] [place] [address] x [phone] [email or web address] 02/18/21 13:21
== END ==
PROVIDERS: PCP Preventive Medicine Occupational Medicine; Referring Provider Student in an Organized Health Care Education/Training Program; Visit Provider Student in an Organized Health Care Education/Training Program
DX: Z51.0 Encounter for antineoplastic radiation therapy (principal); C32.9 Malignant neoplasm of larynx, unspecified
CPT/HCPCS: 74230; 77386; 92611

== ENCOUNTER 2021-07-24 07:16 | Outpatient (CLI) | payer MEDICARE, SELFPAY ==
--- NOTE | 2021-07-24 07:18 | MRI_ITS ---
STUDY: MRI RIGHT HIP WITH AND WITHOUT CONTRAST REASON FOR EXAM: Lesion in the proximal right femur, abnormal PET scan. TECHNIQUE: Standardized fat and water weighted pulse sequences were obtained in all 3 orthogonal planes before and after intravenous administration of 15 mL of Dotarem. COMPARISON: CT images from lesion biopsy. FINDINGS: There is mild right hip arthrosis with mild chondral thinning (proton-density sagittal image 18) and a very small subchondral cyst of the anterior acetabulum. Normal labrum. Normal femoral head. There is a well-defined lesion in the intertrochanteric right femur measuring 2.5 cm in length with sclerotic margins. The lesion demonstrates mildly increased T2 signal (T2 axial images 18-20) and a focus of fat at the superior aspect of the lesion (T1 coronal image 18). There is mild contrast enhancement of the lesion (postcontrast T1 axial images 18-20). On the CT images there is a groundglass appearance of the lesion, therefore fibrous dysplasia is a leading differential consideration. There is no bone edema adjacent to the lesion aside from the biopsy tract. There is no endosteal scalloping. Normal gluteus minimus, medius and iliopsoas tendons and distal insertions. There is no trochanteric, iliopsoas or iliopectineal bursitis. Normal superior and inferior pubic rami. Normal pubic symphysis. Normal ischial tuberosity. Normal origin of the hamstring tendons. Normal visualized iliac wing, sacroiliac joint, and sacral ala. Normal visualized soft tissue structures of the pelvis. MRI/Lower Ext Joint Only W/WO Cont IMPRESSION: Well-defined lesion in the right intratrochanteric hip with nonaggressive features including a focus of fat, fibrous dysplasia is a leading differential consideration. Mild right hip arthrosis. Electronically Signed: Casimiro Aguirre MD at 9:59 EST ,
[2021-07-24] MEDS: 0.9% Saline Lock 10 ML Syringe IV (08:33)
== END 2021-07-24 23:59 | disposition home or self-care (01) ==
PROVIDERS: PCP Preventive Medicine Occupational Medicine; Referring Provider Internal Medicine Hematology & Oncology; Visit Provider Internal Medicine Hematology & Oncology
DX: M89.9 Disorder of bone, unspecified (principal); M16.11 Unilateral primary osteoarthritis, right hip
CPT/HCPCS: 73723; A9575; A4216

== ENCOUNTER 2021-07-25 12:56 | Outpatient (CLI) | payer MEDICARE, SELFPAY ==
--- NOTE | 2021-07-25 14:00 | SP.MBSS_ITS ---
Modified Barium Swallow - Patient Information Study Date: 07/25/21 Study Time: 13:00 Direct Billable Minutes: 105 Total Minutes procedure & reportin Diagnosis: 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 Past Medical History: Back pain; Crohn disease; Gastric reflux; Hemorrhoids; History of Crohn's disease; History of pain when walking; History of stress test; Hoarseness; Knee pain; Neck pain; Smoker; Wears dentures; Wears glasses; Wears hearing aid. Past Surgical History: History of bowel diversion surgery; History of right knee surgery; Hx of colonoscopy; Hx of local excision of skin lesion; Hx of tonsillectomy. The patient underwent definitive chemoradiation therapy from 02/05/2021 ? 03/21/2021. He participated in outpatient speech therapy from 01/29/2021-05/26/2021 for ongoing assessment of swallow function during chemoradiation treatment, implementation of oropharyngeal exercise program, and education re: safe swallow strategies to decrease aspiration risk. MBS study 02/18/2021 recommendations: Regular Textures, Thin Liquids, Compensatory Strategies: Small Bites, Small Sips, Slow Rate, Multiple Swallows - at reasonable intervals as needed to clear pharyngeal residue, Alternate bites/solids and sips/liquids, Sitting upright, Remain sitting upright for 30 minutes after PO intake. Referred for repeat MBS study to further assess current dysphagia and aspiration risk s/p radiation. Patient reports continued xerostomia and dysgeusia at this time, although improved in the past few months. Current Diet Ordered: Regular Textures / Thin Liquids Mental Status: WNL Respiratory Status: Oxygenating on Room Air - Penetration-Aspiration Scale Penetration-Aspiration Scale: OBJECTIVE ASSESSMENT OF SWALLOW FUNCTION (QUANTITATIVE ? PER TRIAL): PENETRATION / ASPIRATION SCALE (ZAMORA): 1 = does not enter airway 2 = enters airway/above vocal folds/ejected 3 = enters airway/above vocal folds/not ejected 4 = enters airway/contacts vocal folds/ejected 5 = enters airway/contacts vocal folds/not ejected 6 = enters airway/below vocal folds/ejected 7 = enters airway/below vocal folds/not ejected despite effort 8 = enters airway/below vocal folds/no effort VIDEOFLOROSCOPIC SCALE SCORE (ZAMORA): Grade I = aspiration of material that has penetrated into the laryngeal vestibule, intact cough reflex Grade II = aspiration < 10 % of the bolus, intact cough reflex Grade III = aspiration of < 10 % of the bolus, reduced cough reflex or aspiration of > 10 % of the bolus, intact cough reflex Grade IV = aspiration of > 10 % of the bolus, reduced cough reflex - Penetration-Aspiration Scale Score Thin Liquid via teaspoon Result: 2= enter airway/above vocal folds/ejected Thin Liquid via teaspoon Trial 2 Result: 3= enters airways/above vocal folds/not ejected Thin Liquid via small single sip from cup Result: 1= does not enter airway Thin Liquid via sequential sips from cup Result: 3= enters airways/above vocal folds/not ejected [place] Thick Liquid via small single sip from cup Result: 1= does not enter airway Comment: Cued cough and reswallow to clear residue in laryngeal vestibule from thin liquids sequential cup trial. Somewhat effective. Honey Thick Liquid via small single sip from cup Result: 1= does not enter airway Pudding Result: 1= does not enter airway Cookie Result: 1= does not enter airway Thin Liquid via single sip from straw Result: 2= enter airway/above vocal folds/ejected Thin Liquid via sequential sips from straw Result: 3= enters airways/above vocal folds/not ejected Comment: Cued cough and reswallow to clear residue in laryngeal vestibule. Somewhat effective. Thin Liquid via small single sip from cup Effortful swallow Result: 1= does not enter airway Thin Liquid via small single sip from cup Effortful swallow Trial 2 Result: 2= enter airway/above vocal folds/ejected Thin Liquid via small single sip from cup [place] t[place] Result: 2= enter airway/above vocal folds/ejected Thin Liquid via teaspoon Effortful swallow Result: 2= enter airway/above vocal folds/ejected - Oral Phase Labial Seal: No Labial Escape Tongue Control During Bolus Hold: Posterior escape of less than half of bolus Bolus Preparation/Mastication: Slow prolonged chewing/mashing with complete recollection Bolus Transport/Lingual Motion: Repetitive/disorganized tongue motion Oral Residue: Residue collection on oral structures - Piecemeal deglutition of cookie. - Pharyngeal Phase Initiation of Pharyngeal Swallow: Bolus head at posterior laryngeal surgace of epiglottis Soft Palate Elevation: Trace column of contrast/air between soft palate and pharyngeal wall Laryngeal Elevation: Partial superior movement thyroid cart/partial apprx aryt-epig petiole Anterior Hyoid Excursion: Partial anterior movement Epiglottic Movement: Partial inversion Laryngeal Vestibule Closure at Height of Swallow: Incomplete; narrow column of air/contrast in laryngeal vestibule Pharyngeal Stripping Wave: Present - diminished Pharyngoesophageal Segment Opening: Parital distension and partial duration; parital obstruction of flow Tongue Base Retraction: No contrast between tongue base and posterior pharyngeal wall Pharyngeal Residue: Collection of residue within or on pharyngeal structures - Esophageal Phase Esophageal Clearance: Esophageal retention - Mild retention of pudding bolus in mid esophagus. - Treatment Strategies Effects of treatment strategies attemped:: Decreased bolus rate = Effective. Cough and reswallow = Somewhat effective. Chin tuck = Not effective. Effortful swallow = No significant impact observed. - Diagnosis/Impression Diagnosis: Mild oropharyngeal phase dysphagia (R13.12) Impression: The oral phase is primarily marked by decreased A-P transport with lingual pumping observed to transport cookie bolus posteriorly. The patient presented with piecemeal deglutition of cookie bolus. He had mild oral residue after the swallow. The pharyngeal phase is primarily marked by decreased airway closure due to decreased laryngeal elevation and anterior hyoid excursion. He also presented with laryngeal penetration of various thin liquid trials, most of which ejected fully from the laryngeal vestibule; however, sequential sips and sips by tsp did not fully eject from the airway. The patient had mild pharyngeal residue in the vallecula of cookie. No aspiration observed during the study. The patient had mild esophageal retention in the mid esophagus. - Recommendations Diet: Regular Textures, Thin Liquids Compensatory Strategies: Small Bites, Small Sips, Slow Rate - Sips one at a time, Multiple Swallows, Sitting upright, Remain sitting upright for 30 minutes after PO intake Recommend Repeat Modified Barium Swallow: Yes - Recommend follow up MBS study in 3-6 months. Need for Skilled Speech Therapy Services: Yes Comment: Will recommend the patient for continued outpatient dysphagia therapy to address deficits in oropharyngeal swallow function. Would consider the patient for oropharyngeal strengthening to improve lingual coordination, laryngeal elevation, hyoid excursion, and duration of UES opening. Consider Effortful swallow, effortful breath hold and swallow, Thomas, and lingual strength/coordination exercises. The patient would benefit from thorough education regarding diet recommendations, recommended compensatory strategies, and negative exterminator impacts of radiation on swallow function. Would consider the patient for implementation of myofascial release in junction with oropharyngeal strengthening. Education Completed: 1. Described result of evaluation., 7. Pt requires further education on strategies & risks. - Status Active ST Patient: Active - Contact Information [facility] Speech Therapy:: Renetta Higgins M.A. CCC-SCCM ADMINISTRATOR Speech-Language Pathologist [facility] [address] [place] [address] [email or web address] [phone] 07/25/21 16:13
== END 2021-07-25 23:59 | disposition home or self-care (01) ==
LOC: RAD 12:57
PROVIDERS: PCP Preventive Medicine Occupational Medicine; Referring Provider Student in an Organized Health Care Education/Training Program; Visit Provider Student in an Organized Health Care Education/Training Program
DX: C32.9 Malignant neoplasm of larynx, unspecified (principal)
CPT/HCPCS: 74230; 92611

== ENCOUNTER 2021-09-08 09:30 | Outpatient (RCR) | payer MEDICARE, SELFPAY ==
[2021-01-21 15:50] VITALS: BMI 27.6
[2021-01-24 10:10] VITALS: BMI 27.6
--- NOTE | 2021-01-29 16:46 | HP.SP.AD_ITS ---
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 Past Medical History: Back pain; Crohn disease; Gastric reflux; Hemorrhoids; History of Crohn's disease; History of pain when walking; History of stress test; Hoarseness; Knee pain; Neck pain; Smoker; Wears dentures; Wears glasses; Wears hearing aid. Past Surgical History: History of bowel diversion surgery; History of right knee surgery; Hx of colonoscopy; Hx of local excision of skin lesion; Hx of tonsillectomy. History of Present Illness -. December 2020: Patient presented to ENT with a several month history of increasing hoarseness. On exam there was concern for a right laryngeal lesion and patient was taken for direct laryngoscopy with biopsies. On exam there appeared to be no issues with laryngeal mobility bilaterally. 01/03/2021: Patient completed direct laryngoscopy with biopsy. On examination there is evidence for a mass involving the right anterior vocal cord, anterior commissure, right supraglottis (notably right false cord), and right subglottis. The right arytenoid and laryngeal surface of the epiglottis were spared. Pathology demonstrated fragments of invasive squamous cell carcinoma. 01/14/2021: PET scan was performed. This demonstrated focal increased FDG concentration observed in the anterior neck laryngeal structures which appears to extend from the anterior commissure to the true/false vocal cord vestibular fold on the right of midline. There is corresponding soft tissue thickening noted in the analogous location with a calculated maximum SUV of 8.3 and a lesion measuring 1.9 cm. No other FDG avid lesions are appreciated. 01/15/2021: Patient was evaluated by ENT. On exam the right vocal cord was somewhat reddish in appearance and there is an underlying mass of that cord and extending into the subglottic area. The vocal cord mobility is difficult to appreciate but there seems to be some movement, airway is adequate. No other lesions are identified on exam. It is felt that his only surgical option would be a total laryngectomy given the location of his tumor and the patient desired to proceed with laryngeal preservation. Patient is scheduled to have PEG tube placed and initiate chemo/radiation next week. Smoking Status: Former smoker Hx Smoking: Yes - quit ~1 month prior to this evaluation Years Smokin Hx Tobacco Use: Yes - Pain Is pain an issue with your current prescribed condition?: No - Personal Right Hearing Abillity: Use of Hearing Aid Left Hearing Abillity: Use of Hearing Aid Visual Assistive Devices: Glasses Patients Living Arrangements: With Significant Other Patient Allergies - Allergies Allergies No Known Allergies Allergy (Verified 01/24/21 10:09) Objective Dysphagia - Administered by Administered by: Self - Thin Liquids Administred via: Cup, Straw Comments: audible swallow w/ suspected oropharyngeal residue retention requiring 2-3 swallows per bolus; difficult to discern vocal quality change w/ liquid intake d/t baseline hoarse vocal quality d/t VF lesion; increased risk for aspiration d/t known impairment in VF adduction - Pureed Comments: large bite size and rapid rate of intake noted; sufficient oral clearance; 1-2 swallows per bolus - Regular Symptoms: Throat Clearing, Couging Comments: large bite size utilized w/ anterior bolus loss; poor safety awareness w/ patient taking additional bites prior to clearing oral cavity of previous bites taken w/ cough/throat clearing 1x; diffuse residue spread t/o oral cavity post deglutition; required liquid mash to clear majority of residue - Results Swallowing Within Normal Limits: No Swallowing Diagnosis: Oropharyngeal Phase Dysphagia Severity: Moderate Dysphagia Assessment - Swallowing Impairment Contributing Factors to Swallowing Impairment: Reduced Oral Stre ngth/Coordination/Sensation, Mastication Inefficiency, Other Other: large bolus size, rapid rate of intake, reduced safety awarenessd - Impact Impact on Safety & Functioning: Risk for Aspiration - Recommendations Modified Barium Swallow/Cookie Swallow Recommended: Yes Swallowing Treatment: Yes - Diet Texture Recommendations Solids Other: Regular Liquids: Thin - Safety Saftey Precautions/Swallowing Recommendations (Check all that Apply): Upright Position at Least 30 Minutes After Meals, Small Sips & Bites when Eating, Alternate Liquids & Solids SP Oncology PSS-HN - PSS-HN Test Normalcy of Diet: Full diet Scale Result:: 100 Public Eating: No restrictions of place, food or companions-eats out any opportunity Public eating scale: 100 Understandability of Speech: Understandable most of the time; occasional repetition necessary. Understandability of Speech Scale: 75 Other Impressions - Comments Cranial Nerve Examination -: TRIGEMINAL NERVE (V) ? no clinical abnormalities observed. FACIAL NERVE (VII) ? impaired; L labial weakness w/ reduced labial ROM. VAGUS NERVE (X) ? impaired; slight asymmetry of palatoglossal arch w/ deviation to the right; diminished sensory response to palate/posterior tongue. HYPOGLOSSAL NERVE (XII) ? 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 Additionally, will provide ongoing assessment of diet tolerance during and post radiation treatment. Without skilled ST services, the patient is at risk for aspiration, weight loss, and malnutrition. - Recommendations MBS: Yes Treatment Warranted: Yes - Frequency Frequency: 1x/Week - Prognosis Prognosis: Good - Goals that are Established: Determination:: Goals will be added/modified as deemed necessary and appropriate. Therapy will be discontinued when results of re-evaluation indicate therapy is no longer needed or lack of progress has been documented. - Goal #1-5 Goal #1: The patient will consume least restrictive diet textures without overt s/s of aspiration with 90% accuracy with minimal verbal cues for use of compensatory strategies to decrease risk for aspiration. Goal #2: The patient will complete an oropharyngeal exercise program during and post radiation treatment X10 repetitions, 3-5X daily independently to improve and maintain strength, ROM, and coordination of swallowing mechanism. Goal #3: The patient will participate in MBS study to objectively assess swallow function and provide recommendations for safest, least restrictive diet and compensatory strategies to reduce risk for aspiration. Education - Patient has Indicated that the Following Identified Educational Needs: None The Patient has indicated that they have no educational or learning abilities that may effect their care.: Yes - Patient Instruction Patient Education: Diagnosis, Treatment Plan, Goals, Safety Precautions, Diet Level, Home Exercise Program Other Education: Education provided regarding the potential impacts of radiation treatment on swallow function during and post treatment, including effects such as mucositis, dysgeusia, radiation fibrosis, and disuse atrophy which may result in restricted range of motion and weakness of swallowing mechanism. Discussed im paired swallowing and increased risk for aspiration, aspiration related illnesses, weight loss, and malnutrition. Discussed importance for speech therapy to monitor and address dysphagia both pre, during, and post radiation treatment to maintain optimal swallow function through continued education and prophylactic exercise program. Provided the patient a handout and demonstration of prophylactic oropharyngeal exercise program, as well as jaw ROM exercises. The patient provided return demonstration with all exercises with minimal verbal cues and demonstration. The patient would benefit from continued training to monitor proper execution of exercises and encourage strict adherence to exercise program. Person Taught: Patient, Significant Other Teaching Method: Discussion, Demonstration Response to teaching: Return demonstration, Verbalize understanding
--- NOTE | 2021-07-28 09:10 | ST ---
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 Past Medical History: Back pain; Crohn disease; Gastric reflux; Hemorrhoids; History of Crohn's disease; History of pain when walking; History of stress test; Hoarseness; Knee pain; Neck pain; Smoker; Wears dentures; Wears glasses; Wears hearing aid. Past Surgical History: History of bowel diversion surgery; History of right knee surgery; Hx of colonoscopy; Hx of local excision of skin lesion; Hx of tonsillectomy. The patient underwent definitive chemoradiation therapy from 02/05/2021 ? 03/21/2021. He participated in outpatient speech therapy from 01/29/2021-05/26/2021 for ongoing assessment of swallow function during chemoradiation treatment, implementation of oropharyngeal exercise program, and education re: safe swallow strategies to decrease aspiration risk. MBS study 02/18/2021 recommendations: Regular Textures, Thin Liquids, Compensatory Strategies: Small Bites, Small Sips, Slow Rate, Multiple Swallows - at reasonable intervals as needed to clear pharyngeal residue, Alternate bites/solids and sips/liquids, Sitting upright, Remain sitting upright for 30 minutes after PO intake. Referred for repeat MBS study to further assess current dysphagia and aspiration risk s/p radiation. Patient reports continued xerostomia and dysgeusia at this time, although improved in the past few months. Current Diet Ordered: Regular Textures / Thin Liquids Mental Status: WNL Respiratory Status: Oxygenating on Room Air - Penetration-Aspiration Scale Penetration-Aspiration Scale: OBJECTIVE ASSESSMENT OF SWALLOW FUNCTION (QUANTITATIVE ? PER TRIAL): PENETRATION / ASPIRATION SCALE (ZAMORA): 1 = does not enter airway 2 = enters airway/above vocal folds/ejected 3 = enters airway/above vocal folds/not ejected 4 = enters airway/contacts vocal folds/ejected 5 = enters airway/contacts vocal folds/not ejected 6 = enters airway/below vocal folds/ejected 7 = enters airway/below vocal folds/not ejected despite effort 8 = enters airway/below vocal folds/no effort VIDEOFLOROSCOPIC SCALE SCORE (ZAMORA): Grade I = aspiration of material that has penetrated into the laryngeal vestibule, intact cough reflex Grade II = aspiration < 10 % of the bolus, intact cough reflex Grade III = aspiration of < 10 % of the bolus, reduced cough reflex or aspiration of > 10 % of the bolus, intact cough reflex Grade IV = aspiration of > 10 % of the bolus, reduced cough reflex - Penetration-Aspiration Scale Score Thin Liquid via teaspoon Result: 2= enter airway/above vocal folds/ejected Thin Liquid via teaspoon Trial 2 Result: 3= enters airways/above vocal folds/not ejected Thin Liquid via small single sip from cup Result: 1= does not enter airway Thin Liquid via sequential sips from cup Result: 3= enters airways/above vocal folds/not ejected [place] Thick Liquid via small single sip from cup Result: 1= does not enter airway Comment: Cued cough and reswallow to clear residue in laryngeal vestibule from thin liquids sequential cup trial. Somewhat effective. Honey Thick Liquid via small single sip from cup Result: 1= does not enter airway Pudding Result: 1= does not enter airway Cookie Result: 1= does not enter airway Thin Liquid via single sip from straw Result: 2= enter airway/above vocal folds/ejected Thin Liquid via sequential sips from straw Result: 3= enters airways/above vocal folds/not ejected Comment: Cued cough and reswallow to clear residue in laryngeal vestibule. Somewhat effective. Thin Liquid via small single sip from cup Effortful swallow Result: 1= does not enter airway Thin Liquid via small single sip from cup Effortful swallow Trial 2 Result: 2= enter airway/above vocal folds/ejected Thin Liquid via small single sip from cup Chin tuck Result: 2= enter airway/above vocal folds/ejected Thin Liquid via teaspoon Effortful swallow Result: 2= enter airway/above vocal folds/ejected - Oral Phase Labial Seal: No Labial Escape Tongue Control During Bolus Hold: Posterior escape of less than half of bolus Bolus Preparation/Mastication: Slow prolonged chewing/mashing with complete recollection Bolus Transport/Lingual Motion: Repetitive/disorganized tongue motion Oral Residue: Residue collection on oral structures - Piecemeal deglutition of cookie. - Pharyngeal Phase Initiation of Pharyngeal Swallow: Bolus head at posterior laryngeal surgace of epiglottis Soft Palate Elevation: Trace column of contrast/air between soft palate and pharyngeal wall Laryngeal Elevation: Partial superior movement thyroid cart/partial apprx aryt-epig petiole Anterior Hyoid Excursion: Partial anterior movement Epiglottic Movement: Partial inversion Laryngeal Vestibule Closure at Height of Swallow: Incomplete; narrow column of air/contrast in laryngeal vestibule Pharyngeal Stripping Wave: Present - diminished Pharyngoesophageal Segment Opening: Parital distension and partial duration; parital obstruction of flow Tongue Base Retraction: No contrast between tongue base and posterior pharyngeal wall Pharyngeal Residue: Collection of residue within or on pharyngeal structures - Esophageal Phase Esophageal Clearance: Esophageal retention - Mild retention of pudding bolus in mid esophagus. - Treatment Strategies Effects of treatment strategies attemped:: Decreased bolus rate = Effective. Cough and reswallow = Somewhat effective. Chin tuck = Not effective. Effortful swallow = No significant impact observed. - Diagnosis/Impression Diagnosis: Mild oropharyngeal phase dysphagia (R13.12) Impression: The oral phase is primarily marked by decreased A-P transport with lingual pumping observed to transport cookie bolus posteriorly. The patient presented with piecemeal deglutition of cookie bolus. He had mild oral residue after the swallow. The pharyngeal phase is primarily marked by decreased airway closure due to decreased laryngeal elevation and anterior hyoid excursion. He also presented with laryngeal penetration of various thin liquid trials, most of which ejected fully from the laryngeal vestibule; however, sequential sips and sips by tsp did not fully eject from the airway. The patient had mild pharyngeal residue in the vallecula of cookie. No aspiration observed during the study. The patient had mild esophageal retention in the mid esophagus. - Recommendations Diet: Regular Textures, Thin Liquids Compensatory Strategies: Small Bites, Small Sips, Slow Rate - Sips one at a time, Multiple Swallows, Sitting upright, Remain sitting upright for 30 minutes after PO intake Recommend Repeat Modified Barium Swallow: Yes - Recommend follow up MBS study in 3-6 months. Need for Skilled Speech Therapy Services: Yes Comment: Will recommend the patient for continued outpatient dysphagia therapy to address deficits in oropharyngeal swallow function. Would consider the patient for oropharyngeal strengthening to improve lingual coordination, laryngeal elevation, hyoid excursion, and duration of UES opening. Consider Effortful swallow, effortful breath hold and swallow, Thomas, and lingual strength/coordination exercises. The patient would benefit from thorough education regarding diet recommendations, recommended compensatory strategies, and negative termite control technician impacts of radiation on swallow function. Would consider the patient for implementation of myofascial release in junction with oropharyngeal strengthening. Education Completed: 1. Described result of evaluation., 7. Pt requires further education on strategies & risks. - Status Active ST Patient: Active - Contact Information [facility] Speech Therapy:: Renetta Higgins M.A. [facility]-PRACTICAL NURSING INSTRUCTOR Speech-Language Pathologist [facility] [address] [place] [address] [email or web address] [phone] 07/25/21 16:13 07/25/21 [id number] <Electronically signed by Renetta Higgins M.A. [facility]-PRACTICAL NURSING INSTRUCTOR> Date/Time Renetta Higgins M.A. CCC-PRACTICAL NURSING INSTRUCTOR
--- NOTE | 2021-07-28 09:15 | HP.SP.ADRE_ITS ---
Previous/Current Goals - Goals 1-5 Previous Goal #1: The patient will consume least restrictive diet textures without overt s/s of aspiration with 90% accuracy with minimal verbal cues for use of compensatory strategies to decrease risk for aspiration. Goal 1 Status: PROGRESSING - The patient is currently consuming Regular textures / Thin liquids. He verbalized no use of compensatory strategies required at this time; however, MBS study completed on 07/25/2021 revealed the pt's need for strategies to decrease aspiration risk with po intake. Previous Goal #2: The patient will complete an oropharyngeal exercise program during and post radiation treatment X10 repetitions, 3-5X daily independently to improve and maintain strength, ROM, and coordination of swallowing mechanism. Goal 2 Status: PROGRESSING - The patient is currently completing exercises 1-2X daily. He requires implementation of additional oropharyngeal exercises to promote improved airway protection during the swallow and continued education re: importance for strict adherence to home exercise program due to exterminator helper impacts of radiation on swallow function. Previous Goal #3: The patient will participate in MBS study to objectively assess swallow function and provide recommendations for safest, least restrictive diet and compensatory strategies to reduce risk for aspiration. Goal 3 Status: Next MBS study planned for 3-6 months to provide ongoing assessment of swallow function and aspiration risk due to dysphagia s/p chemoradiation treatment for squamous cell carcinoma of the larynx. 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 Past Medical History: Back pain; Crohn disease; Gastric reflux; Hemorrhoids; History of Crohn's disease; History of pain when walking; History of stress test; Hoarseness; Knee pain; Neck pain; Smoker; Wears dentures; Wears glasses; Wears hearing aid. Past Surgical History: History of bowel diversion surgery; History of right knee surgery; Hx of colonoscopy; Hx of local excision of skin lesion; Hx of tonsillectomy. The patient underwent definitive chemoradiation therapy from 02/05/2021 ? 03/21/2021. He participated in outpatient speech therapy from 01/29/2021-05/26/2021 for ongoing assessment of swallow function during chemoradiation treatment, implementation of orop haryngeal exercise program, and education re: safe swallow strategies to decrease aspiration risk. MBS study 02/18/2021 recommendations: Regular Textures, Thin Liquids, Compensatory Strategies: Small Bites, Small Sips, Slow Rate, Multiple Swallows - at reasonable intervals as needed to clear pharyngeal residue, Alternate bites/solids and sips/liquids, Sitting upright, Remain sitting upright for 30 minutes after PO intake. Referred for repeat MBS study 07/25/2021 to further assess current dysphagia and aspiration risk s/p radiation. The patient was recommended for Regular Textures, Thin Liquids, Compensatory Strategies: Small Bites, Small Sips, Slow Rate - Sips one at a time, Multiple Swallows, Sitting upright, Remain sitting upright for 30 minutes after PO intake. Will recommend repeat Modified Barium Swallow in 3-6 months and continued OP dysphagia therapy to re-implement oropharyngeal strengthening, as the patient has demonstrated increased laryngeal penetration of thin liquids and decreased strength/ROM of swallowing mechanism as compared to initial MBS study. Smoking Status: Former smoker Hx Smoking: Yes Years Smokin Hx Smoking Cessation Date: 12/26/20 Hx Tobacco Use: Yes - Pain Is pain an issue with your current prescribed condition?: No - Personal Right Hearing Abillity: Use of Hearing Aid Left Hearing Abillity: Use of Hearing Aid Visual Assistive Devices: Glasses Patients Living Arrangements: With Significant Other Patient Allergies - Allergies Allergies No Known Allergies Allergy (Verified 07/15/21 14:00) Modified Barium Results Hx MBS Report Entered: Yes MBS Results (from prior exam): 07/28/21 09:10 Speech Therapy by Renetta Higgins [facility] Speech Pathology [address] [place] [address] Modified Barium Swallow Study MR#: [id number] Acct: [id number] Name: RAMAN GARCIA Rep #:[id number] : 1945 76 From: Renetta Arreguin [facility] [employer] Modified Barium Swallow - Patient Information Study Date: 07/25/21 Study Time: 13:00 Direct Billable Minutes: 105 Total Minutes procedure & reportin Diagnosis: 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 Past Medical History: Back pain; Crohn disease; Gastric reflux; Hemorrhoids; History of Crohn's disease; History of pain when walking; History of stress test; Hoarseness; Knee pain; N antonia pain; Smoker; Wears dentures; Wears glasses; Wears hearing aid. Past Surgical History: History of bowel diversion surgery; History of right knee surgery; Hx of colonoscopy; Hx of local excision of skin lesion; Hx of tonsillectomy. The patient underwent definitive chemoradiation therapy from 02/05/2021 ? 03/21/2021. He participated in outpatient speech therapy from 01/29/2021-05/26/2021 for ongo ing assessment of swallow function during chemoradiation treatment, implementation of oropharyngeal exercise program, and education re: safe swallow strategies to decrease aspiration risk. MBS study 02/18/2021 recommendations: Regular Textures, Thin Liquids, Compensatory Strategies: Small Bites, Small Sips, Slow Rate, Multiple Swallows - at reasonable intervals as needed to clear pharyngeal residue, Alternate bites/solids and sips/liquids, Sitting upright, Remain sitting upright for 30 minutes after PO intake. Referred for repeat MBS study to further assess current dysphagia and aspiration risk s/p radiation. Patient reports continued xerostomia and dysgeusia at this time, although improved in the past few months. Current Diet Ordered: Regular Textures / Thin Liquids Mental Status: WNL Respiratory Status: Oxygenating on Room Air - Penetration-Aspiration Scale Penetration-Aspiration Scale: OBJECTIVE ASSESSMENT OF SWALLOW FUNCTION (QUANTITATIVE ? PER TRIAL): PENETRATION / ASPIRATION SCALE (ZAMORA): 1 = does not enter airway 2 = enters airway/above vocal folds/ejected 3 = enters airway/above vocal folds/not ejected 4 = enters airway/contacts vocal folds/ejected 5 = enters airway/contacts vocal folds/not ejected 6 = enters airway/below vocal folds/ejected 7 = enters airway/below vocal folds/not ejected despite effort 8 = enters airway/below vocal folds/no effort VIDEOFLOROSCOPIC SCALE SCORE (ZAMORA): Grade I = aspiration of material that has penetrated into the laryngeal vestibule, intact cough reflex Grade II = aspiration < 10 % of the bolus, intact cough reflex Grade III = aspiration of < 10 % of the bolus, reduced cough reflex or aspiration of > 10 % of the bolus, intact cough reflex Grade IV = aspiration of > 10 % of the bolus, reduced cough reflex - Penetration-Aspiration Scale Score Thin Liquid via teaspoon Result: 2= enter airway/above vocal folds/ejected Thin Liquid via teaspoon Trial 2 Result: 3= enters airways/above vocal folds/not ejected Thin Liquid via small single sip from cup Result: 1= does not enter airway Thin Liquid via sequential sips from cup Result: 3= enters airways/above vocal folds/not ejected [place] Thick Liquid via small single sip from cup Result: 1= does not enter airway Comment: Cued cough and reswallow to clear residue in laryngeal vestibule from thin liquids sequential cup trial. Somewhat effective. Honey Thick Liquid via small single sip from cup Result: 1= does not enter airway Pudding Result: 1= does not enter airway Cookie Result: 1= does not enter airway Thin Liquid via single sip from straw Result: 2= enter airway/above vocal folds/ejected Thin Liquid via sequential sips from straw Result: 3= enters airways/above vocal folds/not ejected Comment: Cued cough and reswallow to clear residue in laryngeal vestibule. Somewhat effective. Thin Liquid via small single sip from cup Effortful swallow Result: 1= does not enter airway Thin Liquid via small single sip from cup Effortful swallow Trial 2 Result: 2= enter airway/above vocal folds/ejected Thin Liquid via small single sip from cup Chin tuck Result: 2= enter airway/above vocal folds/ejected Thin Liquid via teaspoon Effortful swallow Result: 2= enter airway/above vocal folds/ejected - Oral Phase Labial Seal: No Labial Escape Tongue Control During Bolus Hold: Posterior escape of less than half of bolus Bolus Preparation/Mastication: Slow prolonged chewing/mashing with complete recollection Bolus Transport/Lingual Motion: Repetitive/disorganized tongue motion Oral Residue: Residue collection on oral structures - Piecemeal deglutition of cookie. - Pharyngeal Phase Initiation of Pharyngeal Swallow: Bolus head at posterior laryngeal surgace of epiglottis Soft Palate Elevation: Trace column of contrast/air between soft palate and pharyngeal wall Laryngeal Elevation: Partial superior movement thyroid cart/partial apprx aryt- epig petiole Anterior Hyoid Excursion: Partial anterior movement Epiglottic Movement: Partial inversion Laryngeal Vestibule Closure at Height of Swallow: Incomplete; narrow column of air/contrast in laryngeal vestibule Pharyngeal Stripping Wave: Present - diminished Pharyngoesophageal Segment Opening: Parital distension and partial duration; parital obstruction of flow Tongue Base Retraction: No contrast between tongue base and posterior pharyngeal wall Pharyngeal Residue: Collection of residue within or on pharyngeal structures - Esophageal Phase Esophageal Clearance: Esophageal retention - Mild retention of pudding bolus in mid esophagus. - Treatment Strategies Effects of treatment strategies attemped:: Decreased bolus rate = Effective. Cough and reswallow = Somewhat effective. Chin tuck = Not effective. Effortful swallow = No significant impact observed. - Diagnosis/Impression Diagnosis: Mild oropharyngeal phase dysphagia (R13.12) Impression: The oral phase is primarily marked by decreased A-P transport with lingual pumping observed to transport cookie bolus posteriorly. The patient presented with piecemeal deglutition of cookie bolus. He had mild oral residue after the swallow. The pharyngeal phase is primarily marked by decreased airway closure due to decreased laryngeal elevation and anterior hyoid excursion. He also presented with laryngeal penetration of various thin liquid trials, most of which ejected fully from the laryngeal vestibule; however, sequential sips and sips by tsp did not fully eject from the airway. The patient had mild pharyngeal residue in the vallecula of cookie. No aspiration observed during the study. The patient had mild esophageal retention in the mid esophagus. - Recommendations Diet: Regular Textures, Thin Liquids Compensatory Strategies: Small Bites, Small Sips, Slow Rate - Sips one at a time, Multiple Swallows, Sitting upright, Remain sitting upright for 30 minutes after PO intake Recommend Repeat Modified Barium Swallow: Yes - Recommend follow up MBS study in 3-6 months. Need for Skilled Speech Therapy Services: Yes Comment: Will recommend the patient for continued outpatient dysphagia therapy to address deficits in oropharyngeal swallow function. Would consider the patient for oropharyngeal strengthening to improve lingual coordination, laryngeal elevation, hyoid excursion, and duration of UES opening. Consider Effortful swallow, effortful breath hold and swallow, Thomas, and lingual strength/coordination exercises. The patient would benefit from thorough educa tion regarding diet recommendations, recommended compensatory strategies, and negative exterminator helper impacts of radiation on swallow function. Would consider the patient for implementation of myofascial release in junction with oropharyngeal strengthening. Education Completed: 1. Described result of evaluation., 7. Pt requires further education on strategies & risks. - Status Active ST Patient: Active - Contact Information [facility] Speech Therapy:: Renetta Higgins M.A. [facility] [employer] Speech-Language Pathologist [address] [address] [email or web address] [phone] 07/25/21 16:13 07/25/21 [id number] <Electronically signed by Renetta Higgins M.A., [facility] [employer]> Date/Time Renetta Higgins M.A., [facility] [employer] Initialized on 07/28/21 09:10 - END OF NOTE Plan - Plan Plan: Will recommend the patient for skilled outpatient dysphagia therapy to address oropharyngeal dysphagia related to squamous cell carcinoma of the larynx and to provide the patient further education re: oropharyngeal exercise program, diet texture recommendations, aspiration precautions, and compensatory strategies to decrease risk for aspiration. Additionally, will provide ongoing assessment of diet tolerance post chemoradiation treatment. Without skilled ST services, the patient is at risk for aspiration, weight loss, and malnutrition. - Recommendations Treatment Warranted: Yes - Frequency Frequency: Every Other Week Duration: 12 Months - Prognosis Prognosis: Excellent - Goals that are Established: Determination:: Goals will be added/modified as deemed necessary and appropriate. Therapy will be discontinued when results of re-evaluation indicate therapy is no longer needed or lack of progress has been documented. - Goal #1-5 Goal #1: The patient will consume least restrictive diet textures without overt s/s of aspiration with 90% accuracy with minimal verbal cues for use of compensatory strategies to decrease risk for aspiration. Goal #2: The patient will complete an oropharyngeal exercise program post chemoradiation treatment X10-20 repetitions, 3-5X daily independently to improve and maintain strength, ROM, and coordination of swallowing mechanism. Goal #3: The patient will participate in MBS study to objectively assess swallow function and provide recommendations for safest, least restrictive diet and compensatory strategies to reduce risk for aspiration.
== END 2021-09-08 19:00 | disposition home or self-care (01) ==
LOC: SP 09:30
PROVIDERS: PCP Preventive Medicine Occupational Medicine; Referring Provider Student in an Organized Health Care Education/Training Program; Visit Provider Student in an Organized Health Care Education/Training Program
DX: C32.9 Malignant neoplasm of larynx, unspecified (principal); Z51.0 Encounter for antineoplastic radiation therapy; Z51.11 Encounter for antineoplastic chemotherapy
CPT/HCPCS: 36591; 77386; 80053; 85025; 92526; 92610; 96367; 96376; 96413; J7050; J9045; A4216; J2469; J3490

== ENCOUNTER → 2022-02-20 | Outpatient (CLI) | payer MEDICARE, SELFPAY ==
--- NOTE | 2022-02-20 13:04 | ST.MBS ---
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 Past Medical History: Back pain; Crohn disease; Gastric reflux; Hemorrhoids; History of Crohn's disease; History of pain when walking; History of stress test; Hoarseness; Knee pain; Neck pain; Smoker; Wears dentures; Wears glasses; Wears hearing aid. The patient underwent definitive chemoradiation therapy from 02/05/2021 ? 03/21/2021. He participated in outpatient speech therapy from 01/29/2021-05/26/2021 for ongoing assessment of swallow function during chemoradiation treatment, implementation of oropharyngeal exercise program, and education re: safe swallow strategies to decrease aspiration risk. MBS study 02/18/2021 recommended: Regular Textures, Thin Liquids, Compensatory Strategies: Small Bites, Small Sips, Slow Rate, Multiple Swallows - at reasonable intervals as needed to clear pharyngeal residue, Alternate bites/solids and sips/liquids, Sitting upright, Remain sitting upright for 30 minutes after PO intake. MBS study 07/25/2021 recommended: Regular Textures, Thin Liquids, Compensatory Strategies: Small Bites, Small Sips, Slow Rate - Sips one at a time, Multiple Swallows, Sitting upright, Remain sitting upright for 30 minutes after PO intake. Referred for repeat MBS study to further assess current dysphagia and aspiration risk s/p radiation. Patient reports mild xerostomia and dysgeusia. No concerns for increased difficulty swallowing food/drink. Current Diet Ordered: Regular textures / Thin liquids Dentition: WNL Mental Status: WNL Respiratory Status: Oxygenating on Room Air - Penetration-Aspiration Scale Penetration-Aspiration Scale: OBJECTIVE ASSESSMENT OF SWALLOW FUNCTION (QUANTITATIVE ? PER TRIAL): PENETRATION / ASPIRATION SCALE (ZAMORA): 1 = does not enter airway 2 = enters airway/above vocal folds/ejected 3 = enters airway/above vocal folds/not ejected 4 = enters airway/contacts vocal folds/ejected 5 = enters airway/contacts vocal folds/not ejected 6 = enters airway/below vocal folds/ejected 7 = enters airway/below vocal folds/not ejected despite effort 8 = enters airway/below vocal folds/no effort VIDEOFLOROSCOPIC SCALE SCORE (ZAMORA): Grade I = aspiration of material that has penetrated into the laryngeal vestibule, intact cough reflex Grade II = aspiration < 10 % of the bolus, intact cough reflex Grade III = aspiration of < 10 % of the bolus, reduced cough reflex or aspiration of > 10 % of the bolus, intact cough reflex Grade IV = aspiration of > 10 % of the bolus, reduced cough reflex - Penetration-Aspiration Scale Score Thin Liquid via teaspoon Result: 4= enters airway/contacts vocal folds/ejected - spilling of residue in the pyriforms to the laryngeal vestibule after the swallow Thin Liquid via teaspoon Trial 2 Result: 3= enters airways/above vocal folds/not ejected Thin Liquid via large single sip from cup Result: 3= enters airways/above vocal folds/not ejected Thin Liquid via small single sip from cup Result: 3= enters airways/above vocal folds/not ejected - post prandial penetration of previous trial to the vocal folds Gordon Thick Liquid via large single sip from cup Result: 1= does not enter airway - post prandial penetration of thin liquid residue remaining in the laryngeal vestibule and on the vocal folds from previous trials Honey Thick Liquid via small single sip from cup Result: 1= does not enter airway Pudding via teaspoon with esophageal screen Result: 3= enters airways/above vocal folds/not ejected - cued cough and re-swallow after trial - somewhat effective in clearing laryngeal vestibule / Cookie Result: 1= does not enter airway Thin Liquid via single sip from straw Result: 1= does not enter airway Thin Liquid via single sip from straw Trial 2 Result: 1= does not enter airway - Oral Phase Labial Seal: No Labial Escape Tongue Control During Bolus Hold: Posterior escape of less than half of bolus Bolus Preparation/Mastication: Slow prolonged chewing/mashing with complete recollection Bolus Transport/Lingual Motion: Delayed initiation of tongue motion Oral Residue: Residue collection on oral structures - piecemeal deglutition with cookie - Pharyngeal Phase Initiation of Pharyngeal Swallow: Bolus head in pyriforms Soft Palate Elevation: Trace column of contrast/air between soft palate and pharyngeal wall Laryngeal Elevation: Partial superior movement thyroid cart/partial apprx aryt-epig petiole Anterior Hyoid Excursion: Partial anterior movement Epiglottic Movement: No inversion Laryngeal Vestibule Closure at Height of Swallow: Incomplete; narrow column of air/contrast in laryngeal vestibule Pharyngeal Stripping Wave: Present - diminished Tongue Base Retraction: Wide column of contrast between tongue base & post. pharyngeal wall Pharyngeal Residue: Collection of residue within or on pharyngeal structures - Esophageal Phase Esophageal Clearance: Esophageal retention - trace - Treatment Strategies Effects of treatment strategies attemped:: Cough and re-swallow = somewhat effective in clearing laryngeal vestibule. - Diagnosis/Impression Diagnosis: Mild-moderate oropharyngeal phase dysphagia (R13.12) Impression: The oral phase is primarily marked by... -Prolonged mastication and piecemeal deglutition with regular textured cookie. -Decreased bolus control most notable with large sips of liquids spilling posteriorly to the pyriforms prior to swallow onset - somewhat improved bolus control observed with sips by straw. -Delayed tongue motion for A-P transport. The pharyngeal phase is primarily marked by... -Decreased anterior hyoid excursion and laryngeal elevation resulting in decreased airway closure during the swallow, as well as little to no epiglottic inversion. -Little to no epiglottic inversion and decreased tongue base retraction resulted in collection of residue in the vallecula after the swallow. -Collection of residue in the pyriforms with certain thin liquid trials was observed to spill into the laryngeal vestibule after the swallow. -Post prandial aspiration of thin liquids with weak cough reflex initiated in response. Consistent laryngeal penetration of thin liquids during or after the swallow, which did not reliably eject from the laryngeal vestibule - resulted in aforementioned post prandial aspiration. - Recommendations Diet: Regular Textures, Thin Liquids Compensatory Strategies: Small Bites, Small Sips - intermittent cough and re-swallow when consuming drinks, especially if observing wet vocal quality, Sips by straw only, Slow Rate, Multiple Swallows, Sitting upright Supervision: Assist as needed - to assist pt with verbal cues as needed Recommend Repeat Modified Barium Swallow: Yes - 6-12 months for re-assessment of swallow function and aspiration risk. Pt is at risk for worsening dysphagia s/p radiation treatment to the larynx. Need for Skilled Speech Therapy Services: Yes Comment: Will recommend the patient for continued outpatient dysphagia therapy to address mild-moderate deficits in oropharyngeal swallow function. Will recommend the patient for oropharyngeal strengthening to improve tongue base retraction, laryngeal elevation, anterior hyoid excursion, pharyngeal contraction, and duration of UES opening (Lorraine, CTAR, Thomas, effortful swallows - X20 reps, 4-5X daily; neck ROM exercises). Would consider the patient for oropharyngeal strengthening in junction with myofascial release to improve soft tissue mobilization of anterior neck to promote improved ROM of swallowing mechanism if cleared by his radiation oncologist, Dr. Alarcon. The patient would benefit from thorough education regarding diet recommendations and recommended compensatory strategies. Education Completed: 1. Described result of evaluation., 2. Pt understands evaluation & agrees with goals and treatment plan., 4. Family/caregivers understand evaluation & agree w/ goals & tx plan., 7. Pt requires further education on strategies & risks. - Status Active ST Patient: Active - Contact Information [facility] Speech Therapy:: Renetta Higgins M.A. [facility] AUDITOR Speech-Language Pathologist [facility] [address] [place] [address] [email or web address] [phone] 02/20/22 13:49
== END | disposition home or self-care (01) ==
PROVIDERS: PCP Preventive Medicine Occupational Medicine; Referring Provider Student in an Organized Health Care Education/Training Program; Visit Provider Student in an Organized Health Care Education/Training Program
DX: C32.9 Malignant neoplasm of larynx, unspecified (principal)
CPT/HCPCS: 74230; 92611

== ENCOUNTER → 2022-03-20 | Outpatient (CLI) | payer MEDICARE, SELFPAY ==
--- NOTE | 2022-03-20 09:23 | NM_ITS ---
CLINICAL: 76-year-old male with history of head and neck carcinoma with current complaint of back discomfort. WHOLE BODY 99m Tc MDP RADIONUCLIDE BONE SCINTIGRAPHY COMPARISON: None available FINDINGS: Following the intravenous administration of 25.0 mCi of 99m Tc MDP, whole body bone images reveal: 1. Increased tracer concentration is defined in the sternoclavicular and acromioclavicular compartments of both shoulders, the 10th thoracic vertebra posteriorly in the midline, the second through fifth lumbar vertebra posteriorly on the left and right, the bilateral wrists, the knee articulations bilaterally. 2. Facilitated uptake is noted in the lesser trochanteric aspect of the right proximal femur. 3. Subtle enhanced radiotracer is defined in the left posterior-lateral 10th rib. 3. The remaining skeletal structures are scintigraphically unremarkable with normal-appearing renal images and urinary bladder activity identified. NM/Bone Scan Whole Body IMPRESSION: 1. The increase in radiopharmaceutical redefined in the greater trochanteric aspect of the right proximal femur is likely attributed to isolated skeletal metastatic disease. 2. Degenerative changes defined in the bilateral shoulders, the 10th thoracic vertebra, the second through fifth lumbar vertebra, both wrist articulations, the knees bilaterally. 3. Minimal uptake noted in the left posterior lateral 10th rib is most consistent with trauma-fracture. Plain film x-ray correlation is recommended. Electronically Signed: Elio Zamora, at 9:16 EDT ,
== END | disposition home or self-care (01) ==
LOC: NM 09:20
PROVIDERS: PCP Preventive Medicine Occupational Medicine; Visit Provider Internal Medicine Hematology & Oncology
DX: M51.34 Other intervertebral disc degeneration, thoracic region (principal); M19.011 Primary osteoarthritis, right shoulder; M19.012 Primary osteoarthritis, left shoulder
CPT/HCPCS: 78306; A9503

== ENCOUNTER → 2022-03-24 | Outpatient (CLI) | payer MEDICARE, SELFPAY ==
--- NOTE | 2022-03-24 14:43 | CT_ITS ---
STUDY: CT CHEST WITH CONTRAST REASON FOR EXAM: Male, 76 years old. LUNG NODULES H/O LARYNGEAL CANCER -- IV CONTRAST ONLY RADIATION DOSAGE (If Supplied By Facility): CTDIvol = ( 13.34 ) mGy, DLP = ( 478.45 ) mGycm TECHNIQUE: Transaxial imaging was performed following intravenous administration of IV 100mL Isovue-300. Individualized dose optimization techniques were used for this CT. COMPARISON: None. FINDINGS: The lungs demonstrate a mass within the anterior segment of the right upper lobe 1.89 cm transverse by 2.2 cm AP by 1.82 cm craniocaudal. There is a second mass lesion in the right lung in the posterior aspect of the superior segment of the right lower lobe 2.35 cm transverse by 1.8 cm AP by 2.09 cm craniocaudal. Laterally in the right middle lobe there is a nodule measuring 2.28 cm transverse and laterally in the superior segment of the left lower lobe there is a 2.77 cm transverse dimension nodule. There is a nodule seen anteriorly in the lingula on 0.68 cm transverse and within the anterior aspect of the superior segment of the right lower lobe 0.34 cm transverse. Small right middle lobe nodule measures 1.1 cm. Nodule is seen within the posterior basilar segment of the left lobe 1.82 cm. There is no demonstrated pleural abnormality. Normal heart and pericardium. Normal mediastinum. Pathologic size anterior left hilar lymph node 1.82 x 2.2 cm consistent with metastatic disease. Normal enhanced pulmonary arteries. Normal aorta arch and descending thoracic aorta. Degenerative changes of the mid and lower thoracic spine. No evidence of lytic or sclerotic metastatic disease. There is no demonstrated abnormality of the visualized upper abdomen. CT/Chest WITH Contrast IMPRESSION: Multiple lung nodules and left hilar metastatic lymph node. Findings are consistent with metastatic disease from the patient''s laryngeal carcinoma. Nonneoplastic findings: Degenerative change of the mid and lower thoracic spine. Electronically Signed: Bandar Milton MD, ASHLY at 17:28 EDT ,
[2022-03-24 15:26] LABS: CREATININE FINGERSTICK < 0.9 mg/dL (0.70-1.30); EGFR FINGERSTICK > 60.0000 mL/min (>60)
== END | disposition home or self-care (01) ==
LOC: CT 14:43
PROVIDERS: PCP Preventive Medicine Occupational Medicine; Referring Provider Internal Medicine Hematology & Oncology; Visit Provider Internal Medicine Hematology & Oncology
DX: R91.1 Solitary pulmonary nodule (principal)
CPT/HCPCS: 71260; Q9967

== ENCOUNTER 2022-03-26 11:00 | Outpatient (RCR) | payer MEDICARE, SELFPAY ==
--- NOTE | 2022-05-19 15:19 | HP.SP.DC ---
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 He participated in chemoradiation from 02/05/2021 ? 03/21/2021. He participated in outpatient speech therapy from 01/29/2021-03/26/2022 for ongoing assessment of swallow function during chemoradiation treatment, implementation of oropharyngeal exercise program, and education re: safe swallow strategies to decrease aspiration risk. During POC he participated in 3 MBSS. The patient's called to cancel all future appointments, as the patient has . Will discharge the patient's POC. The patient was a pleasure to work with for dysphagia therapy.
== END 2022-03-26 19:00 | disposition home or self-care (01) ==
LOC: SP 11:00
PROVIDERS: PCP Preventive Medicine Occupational Medicine; Referring Provider Student in an Organized Health Care Education/Training Program; Visit Provider Student in an Organized Health Care Education/Training Program
DX: C32.9 Malignant neoplasm of larynx, unspecified (principal); Z45.2 Encounter for adjustment and management of vascular access device
CPT/HCPCS: 36415; 80053; 85025; 92526

== ENCOUNTER → 2022-03-30 | Outpatient (CLI) | payer MEDICARE, SELFPAY ==
[2022-03-30] VITALS (11 sets, daily range): BP systolic 115–168; BP diastolic 54–85; PULSE 75–88; RESP 13–21; TEMP 36.6; O2SAT 94–97; BMI 26.6
--- NOTE | 2022-03-30 | ASPIGT_PTH ---
PATIENT: KORI ORTEGA LOC: CT U#:[id number] AGE/SX: 76/M ROOM: RE03/30/[address]: Dr. Aakash Chaudhry MD : 1945 BED: DIS: 03/30/2022 SPEC #: [id number] RECD: 03/30/22 10:58 STATUS: ISAIAH REGabriel #: [id number] MARISELA: 03/30/22 00:[address]: Aakash Chaudhry DEPT: SURGICAL PATHOLOGY RECD BY: Ignacio Montaño ENTERED: 03/30/22 10:58 SP TYPE: ASP RAD OTHR DR: Mina Ellis DO Tissues: Lung, NOS Procedures: FNA Specimen Adequacy Special Stain Group II Surgery Specimen Level IV Imprint (control) HEADER OPERATION: CT-guided lung biopsy PRE-OP DIAGNOSIS: Lung nodules TISSUE SUBMITTED: Lung 20-gauge x5 MICROSCOPIC DIAGNOSIS Lung mass, CT-guided core biopsy: Squamous cell carcinoma. See comment. AM:shane 03/31/2022 COMMENT The specimen is evaluated at the time of biopsy by Dr. Sanderson. Immediate Evaluation = Positive for malignant cells and tumor necrosis, favor non-small cell carcinoma. Immunohistochemistry ([id number]) supports the above diagnosis. Case has been reviewed in consultation with Dr. Zhao who concurs with the above diagnosis. NITZA:MIRIAN MICROSCOPIC DESCRIPTION Slides are reviewed. GROSS DESCRIPTION Received in fixative is one container labeled with the patient's name and designated lung biopsy. The specimen consists of multiple irregular fragments of light pollard soft tissue that in aggregate measure 1 x 0.1 x <0.1 cm. The specimen is totally submitted in one cassette. Four touch imprints are prepared at the time of core biopsy. / MIRIAN:shane 03/30/2022 TC:0 [facility]: [id number] ADDENDUM ADDENDUM ADDENDUM ADDENDUM ADDENDUM ADDENDUM 04/13/2022 10:58 ADDENDUM 04/13/2022 10:58 ADDENDUM 04/13/2022 10:58 ADDENDUM 04/13/2022 10:58 ADDENDUM 04/13/2022 10:58 PD-L1 (KEYTRUDA) IMMUNOHISTOCHEMICAL ANALYSIS FROM [facility] RESULTS: Tumor proportion score: <1% / Negative Please see complete report in e-chart or EMR
--- NOTE | 2022-03-30 | IMM_PTH ---
PATIENT: KORI ORTEGA LOC: CT U#:[id number] AGE/SX: 76/M ROOM: RE03/30/[address]: Dr. Aakash Chaudhry MD : 1945 BED: DIS: 03/30/2022 SPEC #: [id number] RECD: 03/31/22 12:42 STATUS: ISAIAH REQ #: [id number] MARISELA: 03/30/22 00:[address]: Aakash Chaudhry DEPT: IMMUNOHISTOCHEMISTRY RECD BY: Tresa Monroy ENTERED: 03/31/22 12:43 SP TYPE: IMMUNO OTHR DR: Mina Ellis DO Tissues: Lung, NOS Procedures: NAPSIN A (add) CK20 (add) CK5-6 (add) KI-67 (add) TTF1 (add) 34BE12 (add) P40 (add) CK7 (initial) PHYSICIAN & INSTITUTION [place] [id number] SPECIMEN INFORMATION: Tissue Source: Lung Clinical Info: Lung nodules Specimen Number: [id number] CPT code: 42623, 04032 x7 METHODOLOGY: Deparaffinized sections of prefer/formalin-fixed tissue or PAP/DQ stained slides are incubated with monoclonal/polyclonal antibodies/oligonucleotide probes. Localization is made via biotin free immunoperoxidase method. Appropriate controls are performed and reacted as expected. Results on target cell population are indicated in the following table: RESULTS: ANTIBODY / CLONE RESULT CK7 (OV-TL12/30) positive, focal CK20 (KS20.8) negative 34BE12 (34BE12) positive TTF-1 (8G7G3/1) negative Napsin A (Rabbit Polyclonal) positive, dim CK5-6 (D5 & 1684) positive P40 (BC28) positive Ki-67 (30-9) positive, 65% These tests were developed and their performance characteristics determined by [facility]. They may not have been cleared or approved by the U.S. Food and Drug Administration. The FDA has determined that such clearance or approval is not necessary. The above immunohistochemical/dualISH markers are ordered and reviewed by the Pathologist. INTERPRETATION: Lung mass, CT-guided core biopsy: Consistent with squamous cell carcinoma. AM:shane 04/01/2022 Case has been reviewed in consultation with Dr. Zhao who concurs with the above diagnosis. IDC:MIRIAN
[2022-03-30 09:03] LABS: Absolute Lymphocyte Count 1.31 X10^3/uL (0.83-4.51); Basophil# 0.05 X10^3/uL; Basophil% 0.7 % (0-1); Eosinophils% 1.4 % (0-5); Hematocrit 42.6 % (40-54); Hemoglobin 14.1 g/dL (13.0-16.5); Lymphocyte # 1.31 X10^3/ul (0.83-4.51); Mean Corp Hgb Conc 33.1 g/dL (32-36); Mean Corpuscular Hgb 30.4 pg (27.0-32.0); Mean Corpuscular Volume 91.8 fL (80-94); Monocyte# 0.75 X10^3/uL; Monocyte% 10.3 % (0-10); NRBC Flagged by Analyzer 0 % (0-5); Neutrophil # 5.02 X10^3/uL (2.7-7.7); Neutrophil % 69.2 % (47-70); Platelet Count 312 K/mm3 (150-450); RBC Distribution Width CV 13.8 % (11.6-14.6); RBC Distribution Width SD 46.6 fl (35.1-43.9); Red Blood Count 4.64 M/mm3 (4.6-6.2); White Blood Count 7.3 K/mm3 (4.4-11.0)
[2022-03-30 09:08] LABS: Partial Thromboplast Time 28.3 Seconds (24.1-36.2)
[2022-03-30 09:29] LABS: International Normalized Ratio 1.1; Prothrombin Time (Protime)PT. 13.6 SECONDS (11.7-14.9)
[2022-03-30] MEDS: Midazolam 2 MG/2 ML Syringe IV (10:05)
[2022-03-30] MEDS: fentaNYL 100 MCG/2 ML Ampul IV (10:08)
[2022-03-30] MEDS: Lidocaine 2% (20 ml mdv) 20 ML Vial INFILT (10:10)
--- NOTE | 2022-03-30 10:10 | CT_ITS ---
PROCEDURE: CT GUIDED CORE NEEDLE BIOPSY OF A right upper lobe LUNG LESION INDICATION: Male, 76 years old. LUNG NODULE BIOPSY PHYSICIAN: Dr. ANNE Contreras CONSENT: Written informed consent was obtained having explained the risks, benefits and alternatives in detail with the patient who accepted the risks and agreed to proceed. Laboratory review and clinical assessment was performed. CONSCIOUS SEDATION PROTOCOL: The Drugs used were: 2 mg Versed, IV., and 50 mcg Fentanyl, IV. The sedation time was: 26 minutes. Conscious sedation was started at 10:05 AM and terminated at 10:31 AM The conscious sedation protocol was independently monitored. RADIATION DOSAGE (If Supplied By Facility): CTDIvol = ( 18.99 ) mGy, DLP = ( 654.13 ) mGycm Individualized dose optimization techniques were used for this CT. TECHNIQUE: The patient was placed in the supine position. A noncontrast CT was performed to localize the lesion in the peripheral aspect of the right upper lobe . The skin surface was prepped and draped in a sterile fashion. 1% lidocaine was used for local anesthesia. Using CT guidance, a 20-gauge coaxial biopsy device was advanced to the periphery of the lesion. A total of 6 core specimens were obtained. The specimens were placed in a formalin solution. A post procedure CT demonstrated no adverse sequelae or pneumothorax. The patient tolerated the procedure well without adverse event. A negative biopsy does not exclude malignancy. Further imaging or clinical followup based on patient condition and degree of clinical suspicion for malignancy. Suggest rebiopsy, if biopsy results do not match with clinical scenario. CT/Biopsy/Inj or Needle Placement IMPRESSION: 1. CT directed core needle biopsy of the right upper lobe pulmonary nodule using CT image guidance with image documentation as described. Pathology results are pending. 2. Conscious Sedation protocol utilized with independent monitoring. Electronically Signed: Cyrus Pretty MD at 11:03 EDT ,
[2022-03-30] MEDS: 0.9% Saline Lock 10 ML Syringe IV (10:14)
--- NOTE | 2022-03-30 10:35 | RAD_ITS ---
STUDY: X-RAY CHEST REASON FOR EXAM: Male, 76 years old. Post lung bx -- Immediately post lung biopsy TECHNIQUE: AP inspiration and expiration views. COMPARISON: Comparison is made with prior study 02/04/2021. FINDINGS: The patient is status post right lung biopsy. There is a small apical right pneumothorax. The patient is asymptomatic. RAD/Chest Insp/Exp 2 View IMPRESSION: Status post right lung biopsy. Small right apical pneumothorax. The patient is asymptomatic. Electronically Signed: Cyrus Pretty MD at 11:01 EDT ,
--- NOTE | 2022-03-30 12:30 | RAD_ITS ---
STUDY: X-RAY CHEST REASON FOR EXAM: Male, 76 years old. Post biopsy -- 2 hours post lung biopsy TECHNIQUE: AP inspiration and expiration views. COMPARISON: Comparison is made with prior study done earlier today. FINDINGS: Since prior study, there has been a mild increase in the right pneumothorax. The patient is asymptomatic. The patient was instructed to return to the emergency room if the patient becomes disc. RAD/Chest Insp/Exp 2 View IMPRESSION: Slight increase in the right pneumothorax. The patient is asymptomatic. Electronically Signed: Cyrus Pretty MD at 10:00 EDT ,
== END | disposition home or self-care (01) ==
LOC: CT 08:45
PROVIDERS: PCP Preventive Medicine Occupational Medicine; Referring Provider Internal Medicine Hematology & Oncology; Visit Provider Internal Medicine Hematology & Oncology
DX: C78.01 Secondary malignant neoplasm of right lung (principal); K50.90 Crohn's disease, unspecified, without complications; C32.9 Malignant neoplasm of larynx, unspecified; J95.811 Postprocedural pneumothorax; K22.70 Barrett's esophagus without dysplasia; K21.9 Gastro-esophageal reflux disease without esophagitis; Z79.82 Long term (current) use of aspirin; Z79.899 Other long term (current) drug therapy; Z87.891 Personal history of nicotine dependence
CPT/HCPCS: 32408; 36415; 71046; 77012; 85025; 85610; 85730; 88172; 88305; 88313; 88341; 88342; 99156; J7050; A4216; C2613

== ENCOUNTER → 2022-04-08 | Outpatient (CLI) | payer MEDICARE, SELFPAY ==
--- NOTE | 2022-04-08 17:25 | RAD_ITS ---
EXAM: XR LUMBOSACRAL SPINE, 2 OR 3 VIEWS CLINICAL INDICATION: PAIN TECHNIQUE: Frontal and lateral views of the lumbar spine and sacrum. This report was created using [employer] report [employer] technology. COMPARISON: None. FINDINGS: VERTEBRAE: Unremarkable. Preserved vertebral body height. No fracture. No spondylolisthesis. Preservation of the normal lumbar lordosis. No significant facet arthropathy. DISC SPACES: There is disc space narrowing at L2-3, L4-5 and L5-S1. There is bony neural foraminal narrowing at L3-4, L4-5 and L5-S1. GASTROINTESTINAL TRACT: Unremarkable as visualized. Included bowel gas pattern is non-obstructive. RAD/Lumbar Spine 2 or 3 Views IMPRESSION: Multilevel degenerative change with disc space narrowing and bony neural foraminal narrowing. There are no acute osseous abnormalities. Electronically Signed: Juan Daniel Sinclair MD at 0:00 EDT ,
--- NOTE | 2022-04-08 17:25 | RAD_ITS ---
EXAM: XR THORACIC SPINE, 2 VIEWS CLINICAL INDICATION: PAIN TECHNIQUE: Frontal and lateral views of the thoracic spine. This report was created using [employer] report generation technology. COMPARISON: None. FINDINGS: VERTEBRAE: Unremarkable. Preserved vertebral body height. No fracture. No spondylolisthesis. Preservation of the normal thoracic kyphosis. No significant facet arthropathy. DISC SPACES: There is multilevel disc space narrowing and anterior osteophyte formation. RAD/Thoracic Spine 2 Views IMPRESSION: No acute osseous abnormalities. There is multilevel degenerative change with disc space narrowing and osteophyte formation. Electronically Signed: Juan Daniel Sinclair MD at 23:58 EDT ,
== END | disposition home or self-care (01) ==
LOC: RAD 17:18
PROVIDERS: PCP Preventive Medicine Occupational Medicine; Visit Provider Anesthesiology Pain Medicine
DX: M51.36 Other intervertebral disc degeneration, lumbar region (principal); M48.061 Spinal stenosis, lumbar region without neurogenic claudication; M51.34 Other intervertebral disc degeneration, thoracic region; M48.04 Spinal stenosis, thoracic region
CPT/HCPCS: 72070; 72100

== ENCOUNTER 2022-04-17 09:19 | Day surgery (SDC) | payer MEDICARE, SELFPAY ==
[2022-04-17] VITALS (8 sets, daily range): BP systolic 111–133; BP diastolic 68–94; PULSE 76–85; RESP 16–18; TEMP 36.2–37.2; O2SAT 95–98; BMI 26.4
[2022-04-17] MEDS: Lactated Ringers 1,000 ML 15 ML IV (09:35)
--- NOTE | 2022-04-17 10:26 | PCM.HP.STD ---
HPI - General HPI Narrative KORI ORTEGA, is a 76 M who presents for reinsertion of port due to imaging showing metastatic disease in his lymph nodes on CT chest. Planning to start chemo on Wednesday. Patient previously had port removed in July 2021 along with his PEG tube around that time as well. [facility] Medical History Arthritis Back pain Cancer Crohn disease Encounter for education Former smoker Gastric reflux Hemorrhoids History of pain when walking History of pain when walking History of stress test Hoarseness Hypokalemia Lung nodules Squamous cell carcinoma of larynx Wears dentures Wears glasses Wears hearing aid Home Medications aspirin 81 mg tablet,delayed release 162 mg PO DAILY 09/26/18 [History Last Taken 04/14/22] multivitamin 1 cap PO DAILY 09/26/18 [History Last Taken 03/30/22 07:00] pantoprazole 20 mg tablet,delayed release 40 mg PO DAILY 09/26/18 [History Last Taken 04/17/22] garlic 1,000 mg capsule 1,000 mg PO DAILY 12/18/20 [History Last Taken 03/29/22 08:00] niacin 500 mg capsule 500 mg PO DAILY 12/18/20 [History Last Taken 03/29/22 07:00] atorvastatin 20 mg tablet 20 mg PO DAILY 10/02/21 [History Last Taken 03/29/22 22:00] cholecalciferol (vitamin D3) 50 mcg (2,000 unit) capsule 50 mcg PO DAILY 01/20/22 [History Last Taken 03/30/22 07:00] sulfasalazine 500 mg tablet 500 mg PO BID CROHN 01/20/22 [History Last Taken 04/17/22] acetaminophen 500 mg capsule 500 mg PO Q6H PRN Pain, Mild 03/26/22 [History Last Taken 03/30/22 07:00] mecobalamin (vitamin B12) 1,000 mcg chewable tablet (B12 Active) 1,000 mcg PO DAILY 04/06/22 [History Last Taken Unknown] hydrocodone-acetaminophen 5-325mg 5mg-325mg 1 tab PO BID PRN Pain 04/13/22 [History Last Taken Unknown] lidocaine-prilocaine 2.5 %-2.5 % topical cream 1 applic topical ONCE PRN port access 30 days #30 grams 04/16/22 [Rx Last Taken Unknown] ondansetron 8 mg disintegrating tablet 8 mg PO Q8H PRN nausea and vomiting #30 tabs 04/16/22 [Rx Last Taken Unknown] prochlorperazine maleate 10 mg tablet 10 mg PO Q6H PRN nausea and vomiting #30 tabs 04/16/22 [Rx Last Taken Unknown] Allergy/AdvReac Type Severity Reaction Status Date / Time No Known Allergies Allergy Verified 04/16/22 09:11 Family History Father Myocardial infarction Mother Heart disease Surgical History History of bowel diversion surgery History of endoscopy History of laryngoscopy History of percutaneous endoscopic gastrostomy History of right knee surgery History of vascular access device Hx of colonoscopy Hx of local excision of skin lesion Hx of tonsillectomy Social History Smoking Status: Former smoker quit date: 12/30/20 pack-years: 45 Tobacco: How many years used: 45 Electronic Cigarette Use: not used how long ago did patient quit smokin weeks ago second hand exposure: Yes quit status: quit date established alcohol intake: never ubaldo/taoist: None seatbelt use: always do you feel safe at home: Yes Vital Signs Vital Signs Vital Signs: 04/17/22 09:59 04/17/22 09:59 Temperature 98.9 F Temperature Source Temporal Pulse Rate 84 Respiratory Rate 16 Respiratory Pattern Normal Blood Pressure 133/94 H Blood Pressure Mean 107 Blood Pressure Source Monitor Blood Pressure Position Semi-Fowlers Blood Pressure Location Left Arm Pulse Ox 96 Oxygen Delivery Method Room Air Weight Weight: 184 lb Body Mass Index (BMI) 26.4 Physical Exam Const alert, oriented x3 and no apparent distress General Appearance: cooperative and comfortable Neck supple Chest Chest Narrative: Well-healed previous incision of the right previous port site--otherwise normal GI soft to palpation Assessment & Plan Assessment/Plan (1) Encounter for insertion of venous access port: (2) Squamous cell carcinoma of larynx: PLAN: Plan I have discussed above with the patient- Port-a-Cath placement. Right possible left. Patient has been counseled as to the risks/benefits of the procedure. I have explained the risks of the surgery, including but not limited to: infection, bleeding, injury to any blood vessels/nerves, injury to lungs (such as pneumothorax or hemothorax and need for chest tube), not having any access, nonfunctioning of port due to thrombosis, infection of port, etc. the patient understands and agrees to proceed. I have answered all the patient's questions to the patient?s satisfaction and the patient has no further questions. Rhianna Maya M.D. Pager: [phone] [facility] [address] [place] [address] [address] [place] [address] Office: [phone]
[2022-04-17] MEDS: Cefazolin 2 GM in 0.9% Normal Saline 100 ML IV (10:59)
[2022-04-17] MEDS: Bupivacaine 0.25% 30 ML Vial (11:29)
--- NOTE | 2022-04-17 11:36 | RAD_ITS ---
STUDY: X-RAY CHEST REASON FOR EXAM: Male, 76 years old. Port -- pacu TECHNIQUE: Single AP portable view of the chest. COMPARISON: Comparison is made with prior examination 03/30/2022. FINDINGS: A right-sided Port-A-Cath has been inserted. The tip is at the junction of the superior vena cava and right atrium. Once again, there are pulmonary nodules in both lungs. There is no demonstrated pleural abnormality. Normal size heart. Normal mediastinum and calixto. Normal visualized pulmonary arteries. Normal visualized aortic arch and descending thoracic aorta. There are diffuse degenerative changes of the visualized thoracic spine. Normal visualized ribs, clavicles, and shoulders. There is no demonstrated abnormality of the visualized soft tissue structures of the upper abdomen. RAD/CXR for Line Placement IMPRESSION: The tip of the Port-A-Cath is at the junction of the superior vena cava and right atrium. Bilateral pulmonary nodules. Electronically Signed: Cyrus Pretty MD at 12:30 EDT ,
--- NOTE | 2022-04-17 11:37 | DCINST_ITS ---
Discharge Instructions Procedure Port-A-Cath Diet Discharge Diet: Light diet - advance as tolerated Activity May shower in (days): 5 (Keep port site clean and dry x5 days. Neck incision okay to get wet after 1 day. Okay to lower shower and upper sponge bath. OR okay to taper off port site with a Ziploc bag to shower) Lifting Restrictions: No lifting > 15 pounds for 3 days with the arm on the side of the port Dressing / Incision Call your doctor if your incision/area has: Continuous Slow Oozing, Sudden Increased Bleeding, Increased Pain/ Swelling, Increased Redness, Foul Smelling Discharge and Swelling at the incision site Call your doctor if you observe: Fever of 101 or Higher Change Dressing in: 2 days Follow Up Care Please Follow Up With: Rhianna Maya MD When: In 10 days for permanent suture removal?call office for appointment Test Results: Test results from this visit will be discussed in further detail at your follow- up appointment, if applicable. Discharge Plan Admission Attending Provider: Rhianna Maya Primary Care Provider: Mina Ellis Discharge Orders/Prescriptions Prescriptions: Continued pantoprazole 20 mg tablet,delayed release (DR/EC) 40 mg PO DAILY aspirin 81 mg tablet,delayed release (DR/EC) 162 mg PO DAILY Hold Instructions: Resume on 02/06/21. multivitamin capsule capsule 1 cap PO DAILY sulfasalazine 500 mg tablet 500 mg PO BID cholecalciferol (vitamin D3) 50 mcg (2,000 unit) capsule 50 mcg PO DAILY atorvastatin 20 mg tablet 20 mg PO DAILY acetaminophen 500 mg capsule 500 mg PO Q6H PRN (Reason: Pain, Mild) mecobalamin (vitamin B12) [B12 Active] 1,000 mcg tablet,chewable 1,000 mcg PO DAILY hydrocodone-acetaminophen 5-325 mg tablet 1 tab PO BID PRN (Reason: Pain) prochlorperazine maleate 10 mg tablet 10 mg PO Q6H PRN (Reason: nausea and vomiting) Qty: 30 2RF ondansetron 8 mg tablet,disintegrating 8 mg PO Q8H PRN (Reason: nausea and vomiting) Qty: 30 2RF lidocaine-prilocaine 2.5-2.5 % cream 1 applic topical ONCE PRN (Reason: port access) 30 Days Qty: 30 2RF garlic 1,000 mg Capsule 1,000 mg PO DAILY niacin 500 mg Capsule 500 mg PO DAILY Referrals / Follow Up: Mina Ellis DO [Primary Care Provider] - Disposition Disposition (needs filled in before D/C Order can be placed): Home, Self Care
--- NOTE | 2022-04-17 11:37 | PCM.OPRPT ---
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 Placement of right IJ Port-A-Cath 2. Use of fluoroscopy 3. Use of ultrasound Surgeon: Rhianna Maya Type of Anesthesia: Local MAC Anesthesiologist: Marquis Amaral Special Medications: Ancef 2 g IV x1 Specimen's removed: None Estimated Blood Loss (mL): < 10 cc Description of Procedure: After informed consent was given, the patient was brought to the operating room and placed in the supine position. Appropriate time out protocol was followed. Patient was then given IV conscious sedation for anesthesia. The patient's right upper chest and neck were then prepped with a surgical skin preparation and sterile surgical drapes were placed. After proper landmarks were ascertained, the skin at the upper right chest area was then infiltrated with 0.25% marcaine. A needle trocar was then inserted into the right internal jugular vein with ultrasound guidance-multiple vessels were viewed with u/s and the right IJ was chosen-- and there was good aspiration of venous blood. A wire was then threaded into the needle trocar and this was visualized under fluoroscopy to ensure that the wire was in the superior vena cava. Once this was done, then the needle trocar was removed. A small skin shayla was made with an 11 blade knife at the wire entrance site. The dilator with the introducer sheath attached was then placed over the wire into the right internal jugular vein via the Seldinger technique and this was visualized under fluoroscopy. The dilator and sheath were in proper position as visualized by fluoroscopy. A subcutaneous pocket was then created caudad to the catheter insertion site. A transverse skin incision was made after the skin and subcutaneous tissues were infiltrated with local anesthetic. Blunt dissection was then used to create a space large enough for placement of the subcutaneous port. The catheter was then tunneled into the subcutaneous pocket. The wire and dilator were then removed. The catheter was then threaded into the introducer sheath and was positioned with its tip at the junction of the superior vena cava and the right atrium as visualized under fluoroscopy. The excess catheter was transected. The catheter was then attached to the subcutaneous port using manufacturers guidelines. The catheter was flushed with a heparin saline mixture prior to placement. Hemostasis was carefully controlled with electrocautery. The port was sutured to the subcutaneous fascia using 2-0 Vicryl suture at two sites. The port was then placed in the subcutaneous pocket. The incision were reapproximated with interrupted subdermal 3-0 vicryl sutures. The skin was reapproximated with 3-0 nylon suture in a interrupted fashion. Steristrips were used for reinforcement of the skin closure at IJ insertion site and a sterile opsite dressings were applied. The patient tolerated the procedure well. Grafts/Implants Used: [employer] PowerPort isp M.R.I. 6Fr Lot [id number] [id number] Complications none
== END 2022-04-17 13:34 | disposition home or self-care (01) ==
LOC: SDC 09:19 → AC 09:20
PROVIDERS: PCP Preventive Medicine Occupational Medicine; Referring Provider Surgery; Visit Provider Surgery
PROC: (CPT 36561; principal; 2022-04-17 10:45)
DX: Z45.2 Encounter for adjustment and management of vascular access device (principal); C78.00 Secondary malignant neoplasm of unspecified lung; K50.90 Crohn's disease, unspecified, without complications; C32.9 Malignant neoplasm of larynx, unspecified; K21.9 Gastro-esophageal reflux disease without esophagitis; M19.90 Unspecified osteoarthritis, unspecified site; Z79.82 Long term (current) use of aspirin; Z87.891 Personal history of nicotine dependence
CPT/HCPCS: 36561; 00532; 71045; 77001; J7120; J2405